=== PATIENT | female | born 1950 | race Hispanic/Latino ===

== ENCOUNTER 2020-10-27 05:00 | Inpatient (IN) | payer MEDICARE ==
[2020-10-27] MEDS ORDERED: traZODone 100 MG TAB PO SCH (22:00)
[2020-10-28] MEDS: PANTOPRAZOLE 40 MG TAB PO SCH (10:20)
--- NOTE | 2020-10-28 10:29 | History and Physical Report ---
GP History & Physical - History of Present Illness Date of admission: 10/27/20 Date of Examination: 10/28/20 Reason for Admission: Danger to self History of Present Illness: Per admission note: Pt ingest unknown amount of Ambien and klonopin in an attempt to kill herself Mary Jo Gonzalez is a 69y/o female patient who was admitted for suicidal attempt. During my assessment of the patient today she is lying down awake. She is a/o x 3. The patient is not forthcoming. She tells me she was depressed but has never tried to commit suicide. She says "I wouldn't do that to my dogs and my son." She denies ever having a suicide attempt in the past. The patient denies hallucinations of any kind. She does verbalize feeling "depressed and stressed." PAST PSYCHIATRIC HISTORY Diagnoses: denies Suicide attempts or Self-harm behavior: Denies Prior psychiatric hospitalizations: Denies Substance Abuse history: Denies Previous psychiatric medications tried: could not recall Outpatient treatment: yes PAST MEDICAL HISTORY: None reported Family Psychiatric History: None reported or documented SOCIAL HISTORY Marital Status: Living Arrangements: with son Employment Status: Retired Access to guns/weapons: denies Education:high school diploma History of Abuse: Denies Legal History: Denies REVIEW OF SYSTEMS Constitutional: Negative for weight loss ENT: Negative for stridor Respiratory: Negative for cough or hemoptysis All other systems reviewed and are negative MENTAL STATUS EXAMINATION General Appearance and Behavior: Age appropriate, good hygiene, not wearing appropriate clothes, good eye contact, cooperative polite with questioning. Cooperation: Participating/engaged Psychomotor Behavior: Psychomotor agitation Mood: depressed, stressed Affect and affective range: congruent with stated mood Thought Process: goal directed Thought Content: hopelessness Speech: normal tone and pace Intellectual Functioning: Average Suicidal Ideation: Denies SI Homicidal Ideation: Denies HI Impulse Control: Impaired Insight and Judgment: Limited insight and judgment Memory: Normal, Attention: Divided attention impaired Orientation: Alert, oriented, Assessment and Plan (1) Major Depressive Disorder Current Visit: Yes Status: Acute Treatment Plan Patient admitted for inpatient psychiatric evaluation, medication adjustment and close monitoring The patient's behavior, mood, sleep and appetite will be closely monitored. Patient enrolled in individual and group therapeutic sessions and encouraged to attend. Patient provided with a safe and structured environment. Patient's physical health needs will be addressed by the Hospitalist. Hospitalist Consulted Labs including CBC, CMP, Lipid profile and Hemoglobin A1C levels ordered for baseline reference Social Assessment will be completed and the Threader will work with patient and family to ensure a suitable and safe disposition Medication adjustment will be made as clinically indicated Continued home meds Usual Wellness Hindu/Preservation: - Start Trazodone 50 mg po QHS & 50 mg po QHS PRN between 10 PM & 2 AM for insomnia - Start Melatonin 5 mg po QHS to promote circadian rhythm - Start [place]-3 for brain health, reduce impulsivity, and as adjunctive treatment for mood disorder, continue upon discharge given overall benefits. - Start B1 prophylaxis with 200 mg po for 5 days The patient agreed on the treatment plan, understood the risk, benefit, alternative treatment, potential consequence of no treatment, and gave informed consent. Estimated days: 5 Post hospital care: primary care provider, psychiatric provider Legal Status: Voluntary Reaction to Hospitalization: Accepting Medications and Allergies Allergies Allergy/AdvReac Type Severity Reaction Status Date / Time Penicillins Allergy Rash Verified 10/27/20 17:08 Home Medications Medication Instructions Recorded Confirmed Last Taken Type Alendronate Sodium [Fosamax] 70 mg PO QWEEK 10/28/20 10/28/20 Unknown History Amlodipine Besylate [Norvasc] 2.5 mg PO DAILY 10/28/20 10/28/20 Unknown History Aspirin EC [Halfprin EC] 81 mg PO QDAY 10/28/20 10/28/20 Unknown History Bupropion HCl [Wellbutrin XL] 300 mg PO QAM 10/28/20 10/28/20 Unknown History Calcium Carbonate/Vitamin D3 1 each PO BID 10/28/20 10/28/20 Unknown History [Calcium 500-Vit D3 200 Tablet] Levothyroxine [Synthroid] 125 mcg PO QAM 10/28/20 10/28/20 Unknown History Metoprolol Xl [Metoprolol 25 mg PO DAILY 10/28/20 10/28/20 Unknown History SUCCINATE ER TAB] Pantoprazole [Protonix] 40 mg PO QDAY 10/28/20 10/28/20 Unknown History Simvastatin 20 mg PO HS 10/28/20 10/28/20 Unknown History Venlafaxine HCl [Venlafaxin ER] 75 mg PO QDAY 10/28/20 10/28/20 Unknown History hydroCHLOROthiazide 12.5 mg PO DAILY 10/28/20 10/28/20 Unknown History [Hydrochlorothiazide] lisinopriL [Lisinopril] 20 mg PO DAILY 10/28/20 10/28/20 Unknown History traZODone [Desyrel] 100 mg PO QHS 10/28/20 10/28/20 Unknown History Active Meds: Active Medications Trazodone HCl (Trazodone 100 Mg Tab) 100 mg PO QHS [facility] Last Admin: 10/27/20 21:35 Dose: 100 mg Documented by: Results - Results Labs/Vitals: Laboratory Last Values POC Glucose 148 mg/dL (70-105) H 10/27/20 17:41 Last Vital Signs Temp 98.3 F 10/27/20 19:23 Pulse 83 10/27/20 19:23 Resp 18 10/27/20 19:23 BP 142/91 10/27/20 19:23 Pulse Ox 97 10/27/20 19:23 Physical Examination - Constitutional Vitals: Vital Signs Temp Pulse Resp BP Pulse Ox 98.3 F 83 18 142/91 97 10/27/20 19:23 10/27/20 19:23 10/27/20 19:23 10/27/20 19:23 10/27/20 19:23 Temperature -Last 24 Hours Temperature 98.3 F Mental Status Exam - Vital signs Last Vital Signs Temp 98.3 F 10/27/20 19:23 Pulse 83 10/27/20 19:23 Resp 18 10/27/20 19:23 BP 142/91 10/27/20 19:23 Pulse Ox 97 10/27/20 19:23 Physician Certification - Certification Statement Physician Certification Statement: This is an acknowledgement statement that MARY JO GONZALEZ is a 69 year old F who requires inpatient psychiatric admission for treatment which could reasonably be expected to improve the patient's condition for Estimated period of time patient will need to remain in the hospital: [ ] Plan for post-hospital care: [ ]
[2020-10-28] MEDS ORDERED: NON-FORMULARY EACH (Amlodipine Besylate [Norvasc] 2.5 MG Tablet) PO SCH (10:45)
[2020-10-28] MEDS ORDERED: VENLAFAXINE HCL 75 MG PO SCH (10:45)
[2020-10-28] MEDS: amLODIPine 5 MG TAB PO SCH (11:18)
[2020-10-28] MEDS: ASPIRIN EC 81 MG TAB PO SCH (11:20)
[2020-10-28] MEDS ORDERED: LEVOTHYROXINE 125 MCG TAB PO ONE (12:00)
[2020-10-28] MEDS: VENLAFAXINE XR 75 MG CAP PO SCH (12:21)
[2020-10-28] MEDS: hydroCHLOROthiazide 12.5 MG CAP PO SCH (12:23)
[2020-10-28] MEDS: METOPROLOL SUCCINATE XL 25 MG TAB PO SCH (12:26)
[2020-10-28] MEDS: LISINOPRIL 20 MG TAB PO SCH (12:32)
[2020-10-28] MEDS: buPROPion XL 150 MG TAB PO SCH (12:33)
[2020-10-28] MEDS: traZODone 100 MG TAB PO SCH (21:01)
[2020-10-28] MEDS: PRAVASTATIN 40 MG TAB PO SCH (21:01)
[2020-10-28] MEDS: CALCIUM CARBONATE/VITAMIN D3 500 MG-200 UNIT TAB PO SCH (21:01)
[2020-10-28] MEDS ORDERED: NON-FORMULARY EACH (Simvastatin [Simvastatin] 20 MG Tablet) PO SCH (22:00)
[2020-10-29] MEDS ORDERED: LEVOTHYROXINE 125 MCG TAB PO ONE (06:00)
--- NOTE | 2020-10-29 07:35 | Consultation ---
History of Present Illness - Reason for Consult Consult date: 10/28/20 Medical management Requesting physician: CHALINO LEZAMA - History of Present Illness [id number]-year-old admitted for suicidal ideation/suicidal attempt. Patient denies suicidal attempt. No hallucinations. Feels depressed and stressed out. Hospitalist service being consulted for medical management. Patient has multiple medical problems including hypertension hyperlipidemia hypothyroidism osteop orosis and vitamin D deficiency. Past History Past Medical History: GERD, hypertension, hyperlipidemia, hypothyroidism, other (Osteoporosis, vitamin D deficiency, depression) Medications and Allergies Allergies Allergy/AdvReac Type Severity Reaction Status Date / Time Penicillins Allergy Rash Verified 10/27/20 17:08 Home Medications Medication Instructions Recorded Confirmed Last Taken Type Alendronate Sodium [Fosamax] 70 mg PO QWEEK 10/28/20 10/28/20 Unknown History Amlodipine Besylate [Norvasc] 2.5 mg PO DAILY 10/28/20 10/28/20 Unknown History Aspirin EC [Halfprin EC] 81 mg PO QDAY 10/28/20 10/28/20 Unknown History Bupropion HCl [Wellbutrin XL] 300 mg PO QAM 10/28/20 10/28/20 Unknown History Calcium Carbonate/Vitamin D3 1 each PO BID 10/28/20 10/28/20 Unknown History [Calcium 500-Vit D3 200 Tablet] Levothyroxine [Synthroid] 125 mcg PO QAM 10/28/20 10/28/20 Unknown History Metoprolol Xl [Metoprolol 25 mg PO DAILY 10/28/20 10/28/20 Unknown History SUCCINATE ER TAB] Pantoprazole [Protonix] 40 mg PO QDAY 10/28/20 10/28/20 Unknown History Simvastatin 20 mg PO HS 10/28/20 10/28/20 Unknown History Venlafaxine HCl [Venlafaxin ER] 75 mg PO QDAY 10/28/20 10/28/20 Unknown History hydroCHLOROthiazide 12.5 mg PO DAILY 10/28/20 10/28/20 Unknown History [Hydrochlorothiazide] lisinopriL [Lisinopril] 20 mg PO DAILY 10/28/20 10/28/20 Unknown History traZODone [Desyrel] 100 mg PO QHS 10/28/20 10/28/20 Unknown History Active Meds: Active Medications Amlodipine Besylate (Amlodipine 5 Mg Tab) 2.5 mg PO QDAY [facility] Last Admin: 10/28/20 11:18 Dose: 2.5 mg Documented by: Aspirin (Aspirin Ec 81 Mg Tab) 81 mg PO QDAY [facility] Last Admin: 10/28/20 11:20 Dose: 81 mg Documented by: Bupropion HCl (Bupropion Xl 150 Mg Tab) 300 mg PO QAM [facility] Last Admin: 10/28/20 12:33 Dose: 300 mg Documented by: Calcium/Vitamin D (Calcium Carbonate/Vitamin D3 500 Mg-200 Unit Tab) 1 each PO BID [facility] Last Admin: 10/28/20 21:01 Dose: 1 each Documented by: Hydrochlorothiazide (Hydrochlorothiazide 12.5 Mg Cap) 12.5 mg PO DAILY [facility] Last Admin: 10/28/20 12:23 Dose: 12.5 mg Documented by: Lisinopril (Lisinopril 20 Mg Tab) 20 mg PO DAILY [facility] Last Admin: 10/28/20 12:32 Dose: 20 mg Documented by: Metoprolol Succinate (Metoprolol Succinate Xl 25 Mg Tab) 25 mg PO DAILY [facility] Last Admin: 10/28/20 12:26 Dose: 25 mg Documented by: Pantoprazole Sodium (Pantoprazole 40 Mg Tab) 40 mg PO QDAY [facility] Last Admin: 10/28/20 10:20 Dose: 40 mg Documented by: Pravastatin Sodium (Pravastatin 40 Mg Tab) 40 mg PO QHS [facility] Last Admin: 10/28/20 21:01 Dose: 40 mg Documented by: Trazodone HCl (Trazodone 100 Mg Tab) 100 mg PO QHS [facility] Last Admin: 10/28/20 21:01 Dose: 100 mg Documented by: Venlafaxine HCl (Venlafaxine Xr 75 Mg Cap) 75 mg PO QDAY [facility] Last Admin: 10/28/20 12:21 Dose: 75 mg Documented by: Review of Systems All systems: negative Exam - Constitutional Vitals: Temp Pulse Resp BP Pulse Ox 97.9 F 55 L 18 124/56 97 10/28/20 19:20 10/28/20 19:20 10/28/20 19:20 10/28/20 19:20 10/28/20 19:20 General appearance: Present: no acute distress, well-nourished - EENT Eyes: Present: PERRL ENT: hearing intact, clear oral mucosa - Neck Neck: Present: supple, normal ROM - Respiratory Respiratory effort: normal Respiratory: bilateral: CTA - Cardiovascular Heart rate: 78 Rhythm: regular Heart Sounds: Present: S1 & S2. Absent: rub, click - Extremities Extremities: pulses symmetrical, No edema Peripheral Pulses: within normal limits - Abdominal General gastrointestinal: Present: soft, non-tender, non-distended, normal bowel sounds Female genitourinary: Present: normal - Integumentary Integumentary: Present: clear, warm, dry - Musculoskeletal Musculoskeletal: gait normal, strength equal bilaterally - Psychiatric Psychiatric: appropriate mood/affect, intact judgment & insight - Neurologic Neurologic: CNII-XII intact, moves all extremities Assessment and Plan - Patient Problems (1) Hypertension Current Visit: Yes Status: Chronic Qualifiers: Hypertension type: essential hypertension Qualified Code(s): I10 - Essential (primary) hypertension Plan to address problem: Continue antihypertensives (2) Vitamin D deficiency Current Visit: Yes Status: Chronic Plan to address problem: Continue vitamin D (3) GERD (gastroesophageal reflux disease) Current Visit: Yes Status: Chronic Qualifiers: Esophagitis presence: without esophagitis Qualified Code(s): K21.9 - Gastro-esophageal reflux disease without esophagitis Plan to address problem: Continue PPIs (4) Hyperlipidemia Current Visit: Yes Status: Chronic Qualifiers: Hyperlipidemia type: mixed hyperlipidemia Qualified Code(s): E78.2 - Mixed hyperlipidemia Plan to address problem: Continue statins (5) Hypothyroidism Current Visit: Yes Status: Chronic Qualifiers: Hypothyroidism type: acquired Qualified Code(s): E03.9 - Hypothyroidism, unspecified Plan to address problem: Continue levothyroxine Check TSH (6) Depression Current Visit: Yes Status: Chronic Plan to address problem: Referred to psych (7) DVT prophylaxis Current Visit: Yes Status: Acute
[2020-10-29 08:24] LABS: Basophils # (Auto) 0.1 K/mm3 (0.0-0.1); Basophils % (Auto) 1.5 % (0.0-1.8); Eosinophils # (Auto) 0.2 K/mm3 (0.0-0.4); Eosinophils % (Auto) 3.8 % (0.0-4.3); Hematocrit 34.5 % (30.3-42.9); Lymphocytes # (Auto) 1.3 K/mm3 (1.2-5.4); Lymphocytes % (Auto) 20.7 % (13.4-35.0); Mean Corpuscular HGB Conc 35 % (30-34); Mean Corpuscular Volume 78 fl (79-97); Monocytes # (Auto) 0.6 K/mm3 (0.0-0.8); Monocytes % (Auto) 9.6 % (0.0-7.3); Platelet Count 294 K/mm3 (140-440); Red Blood Count 4.41 M/mm3 (3.65-5.03); Red Cell Distribution Width 18.2 % (13.2-15.2)
[2020-10-29 08:43] LABS: BUN/Creatinine Ratio 8; Blood Urea Nitrogen 7 mg/dL (7-17); Calcium 8.3 mg/dL (8.4-10.2); Chol/HDL Ratio 3.13 %; HDL Cholesterol 45 mg/dL (40-59); Hemolysis Index 9; LDL Cholesterol,Direct 81 mg/dL (50-130)
[2020-10-29 08:45] LABS: Alanine Aminotransferase < 5 units/L (7-56)
[2020-10-29] MEDS: LISINOPRIL 20 MG TAB PO SCH (09:24)
[2020-10-29] MEDS: PANTOPRAZOLE 40 MG TAB PO SCH (09:24)
[2020-10-29] MEDS: VENLAFAXINE XR 75 MG CAP PO SCH (09:24)
[2020-10-29] MEDS: CALCIUM CARBONATE/VITAMIN D3 500 MG-200 UNIT TAB PO SCH ×2 (09:24→21:29)
[2020-10-29] MEDS: hydroCHLOROthiazide 12.5 MG CAP PO SCH (09:25)
[2020-10-29] MEDS: ASPIRIN EC 81 MG TAB PO SCH (09:25)
[2020-10-29] MEDS: buPROPion XL 150 MG TAB PO SCH (09:26)
[2020-10-29] MEDS: amLODIPine 5 MG TAB PO SCH (09:34)
[2020-10-29] MEDS: METOPROLOL SUCCINATE XL 25 MG TAB PO SCH (09:38)
[2020-10-29] MEDS ORDERED: NON-FORMULARY EACH (Bupropion Hcl [Wellbutrin Xl] 300 MG Tab.Er.24h) PO SCH (10:00)
--- NOTE | 2020-10-29 18:21 | Progress Note ---
Assessment and Plan Assessment and plan: -- Hypertension Current Visit: Yes Status: Chronic Continue antihypertensives Closely monitor blood pressures --Vitamin D deficiency Current Visit: Yes Status: Chronic Continue vitamin D --GERD (gastroesophageal reflux disease) Current Visit: Yes Status: Chronic Continue PPIs, changed to twice daily dose as requested by patient -- Hyperlipidemia Current Visit: Yes Status: Chronic Continue statins -- Hypothyroidism Current Visit: Yes Status: Chronic Continue levothyroxine. Check TSH --Moderate malnutrition/hypoalbuminemia Current Visit: Yes Status: Chronic nutrition supplements, supportive care --Depression Current Visit: Yes Status: Chronic Management per psych --Full code status --DVT prophylaxis Current Visit: Yes Status: Acute SCDs while resting We will closely monitor the patient as needed Continue current management Of care reviewed with the patient and her nurse Call us with questions History Interval history: I have seen and examined the patient in the [facility] psych unit. Patient is cheerful, joking with friends around the table in the activity room Patient planes of some heartburn, reports that she gets Protonix twice a day at home No nausea vomiting or abdominal pain Vital signs reviewed Hospitalist Physical - Constitutional Vitals: Temp Pulse Resp BP Pulse Ox 98.5 F 78 18 109/62 98 10/29/20 09:22 10/29/20 09:24 10/29/20 09:22 10/29/20 09:38 10/29/20 09:22 General appearance: Present: no acute distress, well-nourished - EENT Eyes: Present: PERRL, EOM intact - Neck Neck: Present: supple, normal ROM - Respiratory Respiratory effort: normal Respiratory: bilateral: diminished, negative: rales, rhonchi, wheezing - Cardiovascular Rhythm: regular Heart Sounds: Present: S1 & S2 - Extremities Extremities: no ischemia, No edema - Abdominal General gastrointestinal: soft, non-tender, non-distended, normal bowel sounds - Integumentary Integumentary: Present: clear, warm - Psychiatric Psychiatric: appropriate mood/affect, cooperative - Neurologic Neurologic: CNII-XII intact, moves all extremities Results - Labs CBC & Chem 7: 10/29/20 07:41 10/29/20 07:41 Labs: Laboratory Last Values WBC 6.2 K/mm3 (4.5-11.0) 10/29/20 07:41 RBC 4.41 M/mm3 (3.65-5.03) 10/29/20 07:41 Hgb 12.0 gm/dl (10.1-14.3) 10/29/20 07:41 Hct 34.5 % (30.3-42.9) 10/29/20 07:41 MCV 78 fl (79-97) L 10/29/20 07:41 MCH 27 pg (28-32) L 10/29/20 07:41 MCHC 35 % (30-34) H 10/29/20 07:41 RDW 18.2 % (13.2-15.2) H 10/29/20 07:41 Plt Count 294 K/mm3 (140-440) 10/29/20 07:41 Lymph % (Auto) 20.7 % (13.4-35.0) 10/29/20 07:41 [place] % (Auto) 9.6 % (0.0-7.3) H 10/29/20 07:41 Eos % (Auto) 3.8 % (0.0-4.3) 10/29/20 07:41 Baso % (Auto) 1.5 % (0.0-1.8) 10/29/20 07:41 Lymph # (Auto) 1.3 K/mm3 (1.2-5.4) 10/29/20 07:41 [place] # (Auto) 0.6 K/mm3 (0.0-0.8) 10/29/20 07:41 Eos # (Auto) 0.2 K/mm3 (0.0-0.4) 10/29/20 07:41 Baso # (Auto) 0.1 K/mm3 (0.0-0.1) 10/29/20 07:41 Seg Neutrophils % 64.4 % (40.0-70.0) 10/29/20 07:41 Seg Neutrophils # 4.0 K/mm3 (1.8-7.7) 10/29/20 07:41 Sodium 139 mmol/L (137-145) 10/29/20 07:41 Potassium 3.7 mmol/L (3.6-5.0) 10/29/20 07:41 Chloride 101.9 mmol/L (98-107) 10/29/20 07:41 Carbon Dioxide 28 mmol/L (22-30) 10/29/20 07:41 Anion Gap 13 mmol/L 10/29/20 07:41 BUN 7 mg/dL (7-17) 10/29/20 07:41 Creatinine 0.9 mg/dL (0.6-1.2) 10/29/20 07:41 Estimated GFR > 60 ml/min 10/29/20 07:41 BUN/Creatinine Ratio 8 % 10/29/20 07:41 Glucose 81 mg/dL (65-100) 10/29/20 07:41 POC Glucose 148 mg/dL (70-105) H 10/27/20 17:41 Hemoglobin A1c 4.5 % (4-6) 10/29/20 07:41 Calcium 8.3 mg/dL (8.4-10.2) L 10/29/20 07:41 Total Bilirubin 0.20 mg/dL (0.1-1.2) 10/29/20 07:41 AST 9 units/L (5-40) 10/29/20 07:41 ALT < 5 units/L (7-56) L 10/29/20 07:41 Alkaline Phosphatase 62 units/L (35-129) 10/29/20 07:41 Total Protein 5.7 g/dL (6.3-8.2) L 10/29/20 07:41 Albumin 3.0 g/dL (3.9-5) L 10/29/20 07:41 Albumin/Globulin Ratio 1.1 % 10/29/20 07:41 Triglycerides 128 mg/dL (2-149) 10/29/20 07:41 Cholesterol 141 mg/dL (50-199) 10/29/20 07:41 LDL Cholesterol Direct 81 mg/dL (50-130) 10/29/20 07:41 HDL Cholesterol 45 mg/dL (40-59) 10/29/20 07:41 Cholesterol/HDL Ratio 3.13 % 10/29/20 07:41 TSH 5.150 mlU/mL (0.270-4.200) H 10/29/20 07:41 [place]/IV: Voiding Method Toilet Active Medications - Current Medications Current Medications: Generic Name Dose Route Start Last Admin Trade Name Freq PRN Reason Stop Dose Admin Amlodipine Besylate 2.5 mg 10/28/20 11:00 10/29/20 09:34 Amlodipine 5 Mg Tab PO Not Given QDAY JESSICA Aspirin 81 mg 10/28/20 11:00 10/29/20 09:25 Aspirin Ec 81 Mg Tab PO 81 mg QDAY JESSICA Administration Bupropion HCl 300 mg 10/28/20 11:00 10/29/20 09:26 Bupropion Xl 150 Mg Tab PO 300 mg QAM JESSICA Administration Calcium/Vitamin D 1 each 10/28/20 22:00 10/29/20 09:24 Calcium Carbonate/Vitamin D3 500 Mg-200 Unit Tab PO 1 each BID JESSICA Administration Hydrochlorothiazide 12.5 mg 10/28/20 12:00 10/29/20 09:25 Hydrochlorothiazide 12.5 Mg Cap PO 12.5 mg DAILY JESSICA Administration Lisinopril 20 mg 10/28/20 11:00 10/29/20 09:24 Lisinopril 20 Mg Tab PO 20 mg DAILY JESSICA Administration Metoprolol Succinate 25 mg 10/28/20 12:00 10/29/20 09:38 Metoprolol Succinate Xl 25 Mg Tab PO Not Given DAILY JESSICA Pantoprazole Sodium 40 mg 10/28/20 11:00 10/29/20 09:24 Pantoprazole 40 Mg Tab PO 40 mg QDAY JESSICA Administration Pravastatin Sodium 40 mg 10/28/20 22:00 10/28/20 21:01 Pravastatin 40 Mg Tab PO 40 mg QHS JESSICA Administration Trazodone HCl 100 mg 10/28/20 22:00 10/28/20 21:01 Trazodone 100 Mg Tab PO 100 mg QHS JESSICA Administration Venlafaxine HCl 75 mg 10/28/20 12:00 10/29/20 09:24 Venlafaxine Xr 75 Mg Cap PO 75 mg QDAY JESSICA Administration
[2020-10-29] MEDS: PRAVASTATIN 40 MG TAB PO SCH (21:29)
[2020-10-29] MEDS: traZODone 100 MG TAB PO SCH (21:29)
[2020-10-30] MEDS: buPROPion XL 150 MG TAB PO SCH (09:10)
[2020-10-30] MEDS: PANTOPRAZOLE 40 MG TAB PO SCH (09:10)
[2020-10-30] MEDS: hydroCHLOROthiazide 12.5 MG CAP PO SCH (09:10)
[2020-10-30] MEDS: LISINOPRIL 20 MG TAB PO SCH (09:10)
[2020-10-30] MEDS: VENLAFAXINE XR 75 MG CAP PO SCH (09:10)
[2020-10-30] MEDS: CALCIUM CARBONATE/VITAMIN D3 500 MG-200 UNIT TAB PO SCH ×2 (09:10→21:54)
[2020-10-30] MEDS: METOPROLOL SUCCINATE XL 25 MG TAB PO SCH (09:11)
[2020-10-30] MEDS: amLODIPine 5 MG TAB PO SCH (09:11)
[2020-10-30] MEDS: ASPIRIN EC 81 MG TAB PO SCH (09:12)
--- NOTE | 2020-10-30 09:34 | Progress Note ---
Subjective Date of service: 10/30/20 Principal diagnosis: MDD Subjective Comment: Per Nurse Note: Last evening the patient spent with peers in the activity room. She had appropriate interactions. She smiles at times. She denies si/hi/ah/vh. She moves about in a wheelchair due to ankle fx. She denied pain. Her appetite is good. She was medication compliant. She stated she normally takes 3 trazodone at bedtime and stated she did not sleep "at all" last night. The patient was seen today, she verbalizes feeling better, and states that her son go into rehab, which the patient states this was a big cause of stress. She still verbalizes depression over her situation, but states "It's getting b won." She denies hallucinations or suicidal thoughts. Reason for continued inpatient treatment: The patient had a suicide attempt and initially was not upfront about it. Will continue to monitor and treat to ensue she discharges safely. REVIEW OF SYSTEMS Constitutional: Negative for weight loss ENT: Negative for stridor Respiratory: Negative for cough or hemoptysis All other systems reviewed and are negative MENTAL STATUS EXAMINATION General Appearance and Behavior: Age appropriate, good hygiene, not wearing appropriate clothes, good eye contact, cooperative polite with questioning. Cooperation: Participating/engaged Psychomotor Behavior: Psychomotor agitation Mood: depressed, stressed Affect and affective range: congruent with stated mood Thought Process: goal directed Thought Content: hopelessness Speech: normal tone and pace Intellectual Functioning: Average Suicidal Ideation: Denies SI Homicidal Ideation: Denies HI Impulse Control: Impaired Insight and Judgment: Limited insight and judgment Memory: Normal, Attention: Divided attention impaired Orientation: Alert, oriented, Assessment and Plan (1) Major Depressive Disorder Current Visit: Yes Status: Acute Treatment Plan Patient admitted for inpatient psychiatric evaluation, medication adjustment and close monitoring The patient's behavior, mood, sleep and appetite will be closely monitored. Patient enrolled in individual and group therapeutic sessions and encouraged to attend. Patient provided with a safe and structured environment. Patient's physical health needs will be addressed by the Hospitalist. Hospitalist Consulted Labs including CBC, CMP, Lipid profile and Hemoglobin A1C levels ordered for baseline reference Social Assessment will be completed and the Front Desk Team Member will work with patient and family to ensure a suitable and safe disposition Medication adjustment will be made as clinically indicated Start Abilify 5mg po daily for resistant depression Usual Wellness Religion/Preservation: - Start Trazodone 50 mg po QHS & 50 mg po QHS PRN between 10 PM & 2 AM for insomnia - Start Melatonin 5 mg po QHS to promote circadian rhythm - Start [place]-3 for brain health, reduce impulsivity, and as adjunctive treatment for mood disorder, continue upon discharge given overall benefits. - Start B1 prophylaxis with 200 mg po for 5 days The patient agreed on the treatment plan, understood the risk, benefit, alternative treatment, potential consequence of no treatment, and gave informed consent. Estimated days: 5 Post hospital care: primary care provider, psychiatric provider Medications and Allergies Allergies Allergy/AdvReac Type Severity Reaction Status Date / Time Penicillins Allergy Rash Verified 10/27/20 17:08 Home Medications Medication Instructions Recorded Confirmed Last Taken Type Alendronate Sodium [Fosamax] 70 mg PO QWEEK 10/28/20 10/28/20 Unknown History Amlodipine Besylate [Norvasc] 2.5 mg PO DAILY 10/28/20 10/28/20 Unknown History Aspirin EC [Halfprin EC] 81 mg PO QDAY 10/28/20 10/28/20 Unknown History Bupropion HCl [Wellbutrin XL] 300 mg PO QAM 10/28/20 10/28/20 Unknown History Calcium Carbonate/Vitamin D3 1 each PO BID 10/28/20 10/28/20 Unknown History [Calcium 500-Vit D3 200 Tablet] Levothyroxine [Synthroid] 125 mcg PO QAM 10/28/20 10/28/20 Unknown History Metoprolol Xl [Metoprolol 25 mg PO DAILY 10/28/20 10/28/20 Unknown History SUCCINATE ER TAB] Pantoprazole [Protonix] 40 mg PO QDAY 10/28/20 10/28/20 Unknown History Simvastatin 20 mg PO HS 10/28/20 10/28/20 Unknown History Venlafaxine HCl [Venlafaxin ER] 75 mg PO QDAY 10/28/20 10/28/20 Unknown History hydroCHLOROthiazide 12.5 mg PO DAILY 10/28/20 10/28/20 Unknown History [Hydrochlorothiazide] lisinopriL [Lisinopril] 20 mg PO DAILY 10/28/20 10/28/20 Unknown History traZODone [Desyrel] 100 mg PO QHS 10/28/20 10/28/20 Unknown History Active Meds: Active Medications Amlodipine Besylate (Amlodipine 5 Mg Tab) 2.5 mg PO QDAY [facility] Last Admin: 10/30/20 09:11 Dose: 2.5 mg Documented by: Aspirin (Aspirin Ec 81 Mg Tab) 81 mg PO QDAY [facility] Last Admin: 10/30/20 09:12 Dose: 81 mg Documented by: Bupropion HCl (Bupropion Xl 150 Mg Tab) 300 mg PO QAM [facility] Last Admin: 10/30/20 09:10 Dose: 300 mg Documented by: Calcium/Vitamin D (Calcium Carbonate/Vitamin D3 500 Mg-200 Unit Tab) 1 each PO BID [facility] Last Admin: 10/30/20 09:10 Dose: 1 each Documented by: Hydrochlorothiazide (Hydrochlorothiazide 12.5 Mg Cap) 12.5 mg PO DAILY [facility] Last Admin: 10/30/20 09:10 Dose: 12.5 mg Documented by: Lisinopril (Lisinopril 20 Mg Tab) 20 mg PO DAILY [facility] Last Admin: 10/30/20 09:10 Dose: 20 mg Documented by: Metoprolol Succinate (Metoprolol Succinate Xl 25 Mg Tab) 25 mg PO DAILY [facility] Last Admin: 10/30/20 09:11 Dose: 25 mg Documented by: Pantoprazole Sodium (Pantoprazole 40 Mg Tab) 40 mg PO QDAY [facility] Last Admin: 10/30/20 09:10 Dose: 40 mg Documented by: Pravastatin Sodium (Pravastatin 40 Mg Tab) 40 mg PO QHS [facility] Last Admin: 10/29/20 21:29 Dose: 40 mg Documented by: Trazodone HCl (Trazodone 100 Mg Tab) 100 mg PO QHS [facility] Last Admin: 10/29/20 21:29 Dose: 100 mg Documented by: Venlafaxine HCl (Venlafaxine Xr 75 Mg Cap) 75 mg PO QDAY [facility] Last Admin: 10/30/20 09:10 Dose: 75 mg Documented by: Results - Results Labs/Vitals: Laboratory Last Values WBC 6.2 K/mm3 (4.5-11.0) 10/29/20 07:41 RBC 4.41 M/mm3 (3.65-5.03) 10/29/20 07:41 Hgb 12.0 gm/dl (10.1-14.3) 10/29/20 07:41 Hct 34.5 % (30.3-42.9) 10/29/20 07:41 MCV 78 fl (79-97) L 10/29/20 07:41 MCH 27 pg (28-32) L 10/29/20 07:41 MCHC 35 % (30-34) H 10/29/20 07:41 RDW 18.2 % (13.2-15.2) H 10/29/20 07:41 Plt Count 294 K/mm3 (140-440) 10/29/20 07:41 Lymph % (Auto) 20.7 % (13.4-35.0) 10/29/20 07:41 [place] % (Auto) 9.6 % (0.0-7.3) H 10/29/20 07:41 Eos % (Auto) 3.8 % (0.0-4.3) 10/29/20 07:41 Baso % (Auto) 1.5 % (0.0-1.8) 10/29/20 07:41 Lymph # (Auto) 1.3 K/mm3 (1.2-5.4) 10/29/20 07:41 [place] # (Auto) 0.6 K/mm3 (0.0-0.8) 10/29/20 07:41 Eos # (Auto) 0.2 K/mm3 (0.0-0.4) 10/29/20 07:41 Baso # (Auto) 0.1 K/mm3 (0.0-0.1) 10/29/20 07:41 Seg Neutrophils % 64.4 % (40.0-70.0) 10/29/20 07:41 Seg Neutrophils # 4.0 K/mm3 (1.8-7.7) 10/29/20 07:41 Sodium 139 mmol/L (137-145) 10/29/20 07:41 Potassium 3.7 mmol/L (3.6-5.0) 10/29/20 07:41 Chloride 101.9 mmol/L (98-107) 10/29/20 07:41 Carbon Dioxide 28 mmol/L (22-30) 10/29/20 07:41 Anion Gap 13 mmol/L 10/29/20 07:41 BUN 7 mg/dL (7-17) 10/29/20 07:41 Creatinine 0.9 mg/dL (0.6-1.2) 10/29/20 07:41 Estimated GFR > 60 ml/min 10/29/20 07:41 BUN/Creatinine Ratio 8 % 10/29/20 07:41 Glucose 81 mg/dL (65-100) 10/29/20 07:41 POC Glucose 148 mg/dL (70-105) H 10/27/20 17:41 Hemoglobin A1c 4.5 % (4-6) 10/29/20 07:41 Calcium 8.3 mg/dL (8.4-10.2) L 10/29/20 07:41 Total Bilirubin 0.20 mg/dL (0.1-1.2) 10/29/20 07:41 AST 9 units/L (5-40) 10/29/20 07:41 ALT < 5 units/L (7-56) L 10/29/20 07:41 Alkaline Phosphatase 62 units/L (35-129) 10/29/20 07:41 Total Protein 5.7 g/dL (6.3-8.2) L 10/29/20 07:41 Albumin 3.0 g/dL (3.9-5) L 10/29/20 07:41 Albumin/Globulin Ratio 1.1 % 10/29/20 07:41 Triglycerides 128 mg/dL (2-149) 10/29/20 07:41 Cholesterol 141 mg/dL (50-199) 10/29/20 07:41 LDL Cholesterol Direct 81 mg/dL (50-130) 10/29/20 07:41 HDL Cholesterol 45 mg/dL (40-59) 10/29/20 07:41 Cholesterol/HDL Ratio 3.13 % 10/29/20 07:41 TSH 5.150 mlU/mL (0.270-4.200) H 10/29/20 07:41 Last Vital Signs Temp 98.3 F 10/30/20 07:43 Pulse 92 H 10/30/20 09:11 Resp 18 10/30/20 07:43 BP 142/83 10/30/20 09:11 Pulse Ox 94 10/30/20 07:43
[2020-10-30] MEDS: ARIPiprazole 5 MG TAB PO SCH (10:49)
[2020-10-30] MEDS: PRAVASTATIN 40 MG TAB PO SCH (21:54)
[2020-10-30] MEDS: traZODone 100 MG TAB PO SCH (21:54)
--- NOTE | 2020-10-31 10:16 | Progress Note ---
Subjective Date of service: 10/31/20 Principal diagnosis: MDD Subjective Comment: Per Nurse Note: Pt received in bed A&Ox4. Pt denies SI/HI and AVH. Pt states she is happy because her son in now in rehab. Pt also stated "I was never suicidal, I just wanted to forget everything and go to sleep". Close monitoring continues. The patient was seen today, she verbalizes wanting to go home. Advised the patient that since she had a suicide attempt she would need to be monitored for her safety. The patient denies trying to commit suicide. She states "I wasn't trying to hurt myself. I was just tired and wanted everything to end." Explained to her that these thoughts, with the action of taking pills to "end everything" was a suicidal attempt. She says she feels much better that her son is in rehab and states he was her biggest stressor. Reason for continued inpatient treatment: The patient had a suicide attempt and initially was not upfront about it. Will continue to monitor and treat to ensue she discharges safely. REVIEW OF SYSTEMS Constitutional: Negative for weight loss ENT: Negative for stridor Respiratory: Negative for cough or hemoptysis All other systems reviewed and are negative MENTAL STATUS EXAMINATION General Appearance and Behavior: Age appropriate, good hygiene, not wearing appropriate clothes, good eye contact, cooperative polite with questioning. Cooperation: Participating/engaged Psychomotor Behavior: Psychomotor normal Mood: depressed, stressed Affect and affective range: congruent with stated mood Thought Process: goal directed Thought Content: hopelessness Speech: normal tone and pace Intellectual Functioning: Average Suicidal Ideation: Denies SI Homicidal Ideation: Denies HI Impulse Control: Impaired Insight and Judgment: Limited insight and judgment Memory: Normal, Attention: Divided attention impaired Orientation: Alert, oriented, Assessment and Plan (1) Major Depressive Disorder Current Visit: Yes Status: Acute Treatment Plan Patient admitted for inpatient psychiatric evaluation, medication adjustment and close monitoring The patient's behavior, mood, sleep and appetite will be closely monitored. Patient enrolled in individual and group therapeutic sessions and encouraged to attend. Patient provided with a safe and structured environment. Patient's physical health needs will be addressed by the Hospitalist. Hospitalist Consulted Labs including CBC, CMP, Lipid profile and Hemoglobin A1C levels ordered for baseline reference Social Assessment will be completed and the Weld Technician will work with patient and family to ensure a suitable and safe disposition Medication adjustment will be made as clinically indicated Start Abilify 5mg po daily for resistant depression yesterday No changes today Usual Wellness Gnosticist/Preservation: - Start Trazodone 50 mg po QHS & 50 mg po QHS PRN between 10 PM & 2 AM for insomnia - Start Melatonin 5 mg po QHS to promote circadian rhythm - Start [place]-3 for brain health, reduce impulsivity, and as adjunctive treatment for mood disorder, continue upon discharge given overall benefits. - Start B1 prophylaxis with 200 mg po for 5 days The patient agreed on the treatment plan, understood the risk, benefit, alternative treatment, potential consequence of no treatment, and gave informed consent. Estimated days: 5 Post hospital care: primary care provider, psychiatric provider Medications and Allergies Allergies Allergy/AdvReac Type Severity Reaction Status Date / Time Penicillins Allergy Rash Verified 10/27/20 17:08 Home Medications Medication Instructions Recorded Confirmed Last Taken Type Alendronate Sodium [Fosamax] 70 mg PO QWEEK 10/28/20 10/28/20 Unknown History Amlodipine Besylate [Norvasc] 2.5 mg PO DAILY 10/28/20 10/28/20 Unknown History Aspirin EC [Halfprin EC] 81 mg PO QDAY 10/28/20 10/28/20 Unknown History Bupropion HCl [Wellbutrin XL] 300 mg PO QAM 10/28/20 10/28/20 Unknown History Calcium Carbonate/Vitamin D3 1 each PO BID 10/28/20 10/28/20 Unknown History [Calcium 500-Vit D3 200 Tablet] Levothyroxine [Synthroid] 125 mcg PO QAM 10/28/20 10/28/20 Unknown History Metoprolol Xl [Metoprolol 25 mg PO DAILY 10/28/20 10/28/20 Unknown History SUCCINATE ER TAB] Pantoprazole [Protonix] 40 mg PO QDAY 10/28/20 10/28/20 Unknown History Simvastatin 20 mg PO HS 10/28/20 10/28/20 Unknown History Venlafaxine HCl [Venlafaxin ER] 75 mg PO QDAY 10/28/20 10/28/20 Unknown History hydroCHLOROthiazide 12.5 mg PO DAILY 10/28/20 10/28/20 Unknown History [Hydrochlorothiazide] lisinopriL [Lisinopril] 20 mg PO DAILY 10/28/20 10/28/20 Unknown History traZODone [Desyrel] 100 mg PO QHS 10/28/20 10/28/20 Unknown History Active Meds: Active Medications Amlodipine Besylate (Amlodipine 5 Mg Tab) 2.5 mg PO QDAY [facility] Last Admin: 10/30/20 09:11 Dose: 2.5 mg Documented by: Aripiprazole (Aripiprazole 5 Mg Tab) 5 mg PO QDAY [facility] Last Admin: 10/30/20 10:49 Dose: 5 mg Documented by: Aspirin (Aspirin Ec 81 Mg Tab) 81 mg PO QDAY [facility] Last Admin: 10/30/20 09:12 Dose: 81 mg Documented by: Bupropion HCl (Bupropion Xl 150 Mg Tab) 300 mg PO QAM [facility] Last Admin: 10/30/20 09:10 Dose: 300 mg Documented by: Calcium/Vitamin D (Calcium Carbonate/Vitamin D3 500 Mg-200 Unit Tab) 1 each PO BID [facility] Last Admin: 10/30/20 21:54 Dose: 1 each Documented by: Hydrochlorothiazide (Hydrochlorothiazide 12.5 Mg Cap) 12.5 mg PO DAILY [facility] Last Admin: 10/30/20 09:10 Dose: 12.5 mg Documented by: Lisinopril (Lisinopril 20 Mg Tab) 20 mg PO DAILY [facility] Last Admin: 10/30/20 09:10 Dose: 20 mg Documented by: Metoprolol Succinate (Metoprolol Succinate Xl 25 Mg Tab) 25 mg PO DAILY [facility] Last Admin: 10/30/20 09:11 Dose: 25 mg Documented by: Pantoprazole Sodium (Pantoprazole 40 Mg Tab) 40 mg PO QDAY [facility] Last Admin: 10/30/20 09:10 Dose: 40 mg Documented by: Pravastatin Sodium (Pravastatin 40 Mg Tab) 40 mg PO QHS [facility] Last Admin: 10/30/20 21:54 Dose: 40 mg Documented by: Trazodone HCl (Trazodone 100 Mg Tab) 100 mg PO QHS [facility] Last Admin: 10/30/20 21:54 Dose: 100 mg Documented by: Venlafaxine HCl (Venlafaxine Xr 75 Mg Cap) 75 mg PO QDAY [facility] Last Admin: 10/30/20 09:10 Dose: 75 mg Documented by: Results - Results Labs/Vitals: Laboratory Last Values WBC 6.2 K/mm3 (4.5-11.0) 10/29/20 07:41 RBC 4.41 M/mm3 (3.65-5.03) 10/29/20 07:41 Hgb 12.0 gm/dl (10.1-14.3) 10/29/20 07:41 Hct 34.5 % (30.3-42.9) 10/29/20 07:41 MCV 78 fl (79-97) L 10/29/20 07:41 MCH 27 pg (28-32) L 10/29/20 07:41 MCHC 35 % (30-34) H 10/29/20 07:41 RDW 18.2 % (13.2-15.2) H 10/29/20 07:41 Plt Count 294 K/mm3 (140-440) 10/29/20 07:41 Lymph % (Auto) 20.7 % (13.4-35.0) 10/29/20 07:41 [place] % (Auto) 9.6 % (0.0-7.3) H 10/29/20 07:41 Eos % (Auto) 3.8 % (0.0-4.3) 10/29/20 07:41 Baso % (Auto) 1.5 % (0.0-1.8) 10/29/20 07:41 Lymph # (Auto) 1.3 K/mm3 (1.2-5.4) 10/29/20 07:41 [place] # (Auto) 0.6 K/mm3 (0.0-0.8) 10/29/20 07:41 Eos # (Auto) 0.2 K/mm3 (0.0-0.4) 10/29/20 07:41 Baso # (Auto) 0.1 K/mm3 (0.0-0.1) 10/29/20 07:41 Seg Neutrophils % 64.4 % (40.0-70.0) 10/29/20 07:41 Seg Neutrophils # 4.0 K/mm3 (1.8-7.7) 10/29/20 07:41 Sodium 139 mmol/L (137-145) 10/29/20 07:41 Potassium 3.7 mmol/L (3.6-5.0) 10/29/20 07:41 Chloride 101.9 mmol/L (98-107) 10/29/20 07:41 Carbon Dioxide 28 mmol/L (22-30) 10/29/20 07:41 Anion Gap 13 mmol/L 10/29/20 07:41 BUN 7 mg/dL (7-17) 10/29/20 07:41 Creatinine 0.9 mg/dL (0.6-1.2) 10/29/20 07:41 Estimated GFR > 60 ml/min 10/29/20 07:41 BUN/Creatinine Ratio 8 % 10/29/20 07:41 Glucose 81 mg/dL (65-100) 10/29/20 07:41 POC Glucose 148 mg/dL (70-105) H 10/27/20 17:41 Hemoglobin A1c 4.5 % (4-6) 10/29/20 07:41 Calcium 8.3 mg/dL (8.4-10.2) L 10/29/20 07:41 Total Bilirubin 0.20 mg/dL (0.1-1.2) 10/29/20 07:41 AST 9 units/L (5-40) 10/29/20 07:41 ALT < 5 units/L (7-56) L 10/29/20 07:41 Alkaline Phosphatase 62 units/L (35-129) 10/29/20 07:41 Total Protein 5.7 g/dL (6.3-8.2) L 10/29/20 07:41 Albumin 3.0 g/dL (3.9-5) L 10/29/20 07:41 Albumin/Globulin Ratio 1.1 % 10/29/20 07:41 Triglycerides 128 mg/dL (2-149) 10/29/20 07:41 Cholesterol 141 mg/dL (50-199) 10/29/20 07:41 LDL Cholesterol Direct 81 mg/dL (50-130) 10/29/20 07:41 HDL Cholesterol 45 mg/dL (40-59) 10/29/20 07:41 Cholesterol/HDL Ratio 3.13 % 10/29/20 07:41 TSH 5.150 mlU/mL (0.270-4.200) H 10/29/20 07:41 Last Vital Signs Temp 98.0 F 10/31/20 09:12 Pulse 81 10/31/20 09:12 Resp 16 10/31/20 09:12 BP 91/63 10/31/20 09:12 Pulse Ox 95 05/26/21 09:12
[2020-10-31] MEDS: ASPIRIN EC 81 MG TAB PO SCH (10:45)
[2020-10-31] MEDS: ARIPiprazole 5 MG TAB PO SCH (10:46)
[2020-10-31] MEDS: VENLAFAXINE XR 75 MG CAP PO SCH (10:46)
[2020-10-31] MEDS: amLODIPine 5 MG TAB PO SCH (10:46)
[2020-10-31] MEDS: buPROPion XL 150 MG TAB PO SCH (10:46)
[2020-10-31] MEDS: LISINOPRIL 20 MG TAB PO SCH (10:47)
[2020-10-31] MEDS: hydroCHLOROthiazide 12.5 MG CAP PO SCH (10:48)
[2020-10-31] MEDS: PANTOPRAZOLE 40 MG TAB PO SCH (10:49)
[2020-10-31] MEDS: METOPROLOL SUCCINATE XL 25 MG TAB PO SCH (10:49)
[2020-10-31] MEDS: CALCIUM CARBONATE/VITAMIN D3 500 MG-200 UNIT TAB PO SCH ×2 (10:49→21:09)
[2020-10-31] MEDS: traZODone 100 MG TAB PO SCH (21:09)
[2020-10-31] MEDS: PRAVASTATIN 40 MG TAB PO SCH (21:09)
[2020-11-01] MEDS: hydroCHLOROthiazide 12.5 MG CAP PO SCH (09:24)
[2020-11-01] MEDS: ASPIRIN EC 81 MG TAB PO SCH (09:24)
[2020-11-01] MEDS: METOPROLOL SUCCINATE XL 25 MG TAB PO SCH (09:24)
[2020-11-01] MEDS: VENLAFAXINE XR 75 MG CAP PO SCH (09:24)
[2020-11-01] MEDS: CALCIUM CARBONATE/VITAMIN D3 500 MG-200 UNIT TAB PO SCH ×2 (09:25→21:13)
[2020-11-01] MEDS: ARIPiprazole 5 MG TAB PO SCH (09:25)
[2020-11-01] MEDS: amLODIPine 5 MG TAB PO SCH (09:26)
[2020-11-01] MEDS: PANTOPRAZOLE 40 MG TAB PO SCH ×2 (09:26→21:13)
[2020-11-01] MEDS: LISINOPRIL 20 MG TAB PO SCH (09:26)
[2020-11-01] MEDS: buPROPion XL 150 MG TAB PO SCH (09:27)
--- NOTE | 2020-11-01 10:26 | Progress Note ---
Subjective Date of service: 11/01/20 Principal diagnosis: MDD Subjective Comment: The patient was seen today, she looks a little irritable. She says "I'm just ready to go home and see my dogs." The patient says "I promise I want do that again. My wants me home too." She denies SI/HI or hallucinations of any kind. Reason for continued inpatient treatment: The patient has consistently denied suicidal thoughts, but she had a suicide attempt and initially was not upfront about it. Will continue to monitor and treat to ensue she discharges safely. REVIEW OF SYSTEMS Constitutional: Negative for weight loss ENT: Negative for stridor Respiratory: Negative for cough or hemoptysis All other systems reviewed and are negative MENTAL STATUS EXAMINATION General Appearance and Behavior: Age appropriate, good hygiene, not wearing appropriate clothes, good eye contact, cooperative polite with questioning. Cooperation: Participating/engaged Psychomotor Behavior: Psychomotor normal Mood: depressed, stressed Affect and affective range: congruent with stated mood Thought Process: goal directed Thought Content: hopelessness Speech: normal tone and pace Intellectual Functioning: Average Suicidal Ideation: Denies SI Homicidal Ideation: Denies HI Impulse Control: Impaired Insight and Judgment: Limited insight and judgment Memory: Normal, Attention: Divided attention impaired Orientation: Alert, oriented, Assessment and Plan (1) Major Depressive Disorder Current Visit: Yes Status: Acute Treatment Plan Patient admitted for inpatient psychiatric evaluation, medication adjustment and close monitoring The patient's behavior, mood, sleep and appetite will be closely monitored. Patient enrolled in individual and group therapeutic sessions and encouraged to attend. Patient provided with a safe and structured environment. Patient's physical health needs will be addressed by the Hospitalist. Hospitalist Consulted Labs including CBC, CMP, Lipid profile and Hemoglobin A1C levels ordered for baseline reference Social Assessment will be completed and the Spinner Fixer will work with patient and family to ensure a suitable and safe disposition Medication adjustment will be made as clinically indicated No changes today Usual Wellness Jainism/Preservation: - Start Trazodone 50 mg po QHS & 50 mg po QHS PRN between 10 PM & 2 AM for insomnia - Start Melatonin 5 mg po QHS to promote circadian rhythm - Start [place]-3 for brain health, reduce impulsivity, and as adjunctive treatment for mood disorder, continue upon discharge given overall benefits. - Start B1 prophylaxis with 200 mg po for 5 days The patient agreed on the treatment plan, understood the risk, benefit, alternative treatment, potential consequence of no treatment, and gave informed consent. Estimated days: 5 Post hospital care: primary care provider, psychiatric provider Medications and Allergies Allergies Allergy/AdvReac Type Severity Reaction Status Date / Time Penicillins Allergy Rash Verified 10/27/20 17:08 Home Medications Medication Instructions Recorded Confirmed Last Taken Type Alendronate Sodium [Fosamax] 70 mg PO QWEEK 10/28/20 10/28/20 Unknown History Amlodipine Besylate [Norvasc] 2.5 mg PO DAILY 10/28/20 10/28/20 Unknown History Aspirin EC [Halfprin EC] 81 mg PO QDAY 10/28/20 10/28/20 Unknown History Bupropion HCl [Wellbutrin XL] 300 mg PO QAM 10/28/20 10/28/20 Unknown History Calcium Carbonate/Vitamin D3 1 each PO BID 10/28/20 10/28/20 Unknown History [Calcium 500-Vit D3 200 Tablet] Levothyroxine [Synthroid] 125 mcg PO QAM 10/28/20 10/28/20 Unknown History Metoprolol Xl [Metoprolol 25 mg PO DAILY 10/28/20 10/28/20 Unknown History SUCCINATE ER TAB] Pantoprazole [Protonix] 40 mg PO QDAY 10/28/20 10/28/20 Unknown History Simvastatin 20 mg PO HS 10/28/20 10/28/20 Unknown History Venlafaxine HCl [Venlafaxin ER] 75 mg PO QDAY 10/28/20 10/28/20 Unknown History hydroCHLOROthiazide 12.5 mg PO DAILY 10/28/20 10/28/20 Unknown History [Hydrochlorothiazide] lisinopriL [Lisinopril] 20 mg PO DAILY 10/28/20 10/28/20 Unknown History traZODone [Desyrel] 100 mg PO QHS 10/28/20 10/28/20 Unknown History Active Meds: Active Medications Amlodipine Besylate (Amlodipine 5 Mg Tab) 2.5 mg PO QDAY [facility] Last Admin: 11/01/20 09:26 Dose: 2.5 mg Documented by: Aripiprazole (Aripiprazole 5 Mg Tab) 5 mg PO QDAY [facility] Last Admin: 11/01/20 09:25 Dose: 5 mg Documented by: Aspirin (Aspirin Ec 81 Mg Tab) 81 mg PO QDAY [facility] Last Admin: 11/01/20 09:24 Dose: 81 mg Documented by: Bupropion HCl (Bupropion Xl 150 Mg Tab) 300 mg PO QAM [facility] Last Admin: 11/01/20 09:27 Dose: 300 mg Documented by: Calcium/Vitamin D (Calcium Carbonate/Vitamin D3 500 Mg-200 Unit Tab) 1 each PO BID [facility] Last Admin: 11/01/20 09:25 Dose: 1 each Documented by: Hydrochlorothiazide (Hydrochlorothiazide 12.5 Mg Cap) 12.5 mg PO DAILY [facility] Last Admin: 11/01/20 09:24 Dose: 12.5 mg Documented by: Lisinopril (Lisinopril 20 Mg Tab) 20 mg PO DAILY [facility] Last Admin: 11/01/20 09:26 Dose: 20 mg Documented by: Metoprolol Succinate (Metoprolol Succinate Xl 25 Mg Tab) 25 mg PO DAILY [facility] Last Admin: 11/01/20 09:24 Dose: 25 mg Documented by: Pantoprazole Sodium (Pantoprazole 40 Mg Tab) 40 mg PO QDAY [facility] Last Admin: 11/01/20 09:26 Dose: 40 mg Documented by: Pravastatin Sodium (Pravastatin 40 Mg Tab) 40 mg PO QHS [facility] Last Admin: 10/31/20 21:09 Dose: 40 mg Documented by: Trazodone HCl (Trazodone 100 Mg Tab) 100 mg PO QHS [facility] Last Admin: 10/31/20 21:09 Dose: 100 mg Documented by: Venlafaxine HCl (Venlafaxine Xr 75 Mg Cap) 75 mg PO QDAY [facility] Last Admin: 11/01/20 09:24 Dose: 75 mg Documented by: Results - Results Labs/Vitals: Laboratory Last Values WBC 6.2 K/mm3 (4.5-11.0) 10/29/20 07:41 RBC 4.41 M/mm3 (3.65-5.03) 10/29/20 07:41 Hgb 12.0 gm/dl (10.1-14.3) 10/29/20 07:41 Hct 34.5 % (30.3-42.9) 10/29/20 07:41 MCV 78 fl (79-97) L 10/29/20 07:41 MCH 27 pg (28-32) L 10/29/20 07:41 MCHC 35 % (30-34) H 10/29/20 07:41 RDW 18.2 % (13.2-15.2) H 10/29/20 07:41 Plt Count 294 K/mm3 (140-440) 10/29/20 07:41 Lymph % (Auto) 20.7 % (13.4-35.0) 10/29/20 07:41 [place] % (Auto) 9.6 % (0.0-7.3) H 10/29/20 07:41 Eos % (Auto) 3.8 % (0.0-4.3) 10/29/20 07:41 Baso % (Auto) 1.5 % (0.0-1.8) 10/29/20 07:41 Lymph # (Auto) 1.3 K/mm3 (1.2-5.4) 10/29/20 07:41 [place] # (Auto) 0.6 K/mm3 (0.0-0.8) 10/29/20 07:41 Eos # (Auto) 0.2 K/mm3 (0.0-0.4) 10/29/20 07:41 Baso # (Auto) 0.1 K/mm3 (0.0-0.1) 10/29/20 07:41 Seg Neutrophils % 64.4 % (40.0-70.0) 10/29/20 07:41 Seg Neutrophils # 4.0 K/mm3 (1.8-7.7) 10/29/20 07:41 Sodium 139 mmol/L (137-145) 10/29/20 07:41 Potassium 3.7 mmol/L (3.6-5.0) 10/29/20 07:41 Chloride 101.9 mmol/L (98-107) 10/29/20 07:41 Carbon Dioxide 28 mmol/L (22-30) 10/29/20 07:41 Anion Gap 13 mmol/L 10/29/20 07:41 BUN 7 mg/dL (7-17) 10/29/20 07:41 Creatinine 0.9 mg/dL (0.6-1.2) 10/29/20 07:41 Estimated GFR > 60 ml/min 10/29/20 07:41 BUN/Creatinine Ratio 8 % 10/29/20 07:41 Glucose 81 mg/dL (65-100) 10/29/20 07:41 POC Glucose 148 mg/dL (70-105) H 10/27/20 17:41 Hemoglobin A1c 4.5 % (4-6) 10/29/20 07:41 Calcium 8.3 mg/dL (8.4-10.2) L 10/29/20 07:41 Total Bilirubin 0.20 mg/dL (0.1-1.2) 10/29/20 07:41 AST 9 units/L (5-40) 10/29/20 07:41 ALT < 5 units/L (7-56) L 10/29/20 07:41 Alkaline Phosphatase 62 units/L (35-129) 10/29/20 07:41 Total Protein 5.7 g/dL (6.3-8.2) L 10/29/20 07:41 Albumin 3.0 g/dL (3.9-5) L 10/29/20 07:41 Albumin/Globulin Ratio 1.1 % 10/29/20 07:41 Triglycerides 128 mg/dL (2-149) 10/29/20 07:41 Cholesterol 141 mg/dL (50-199) 10/29/20 07:41 LDL Cholesterol Direct 81 mg/dL (50-130) 10/29/20 07:41 HDL Cholesterol 45 mg/dL (40-59) 10/29/20 07:41 Cholesterol/HDL Ratio 3.13 % 10/29/20 07:41 TSH 5.150 mlU/mL (0.270-4.200) H 10/29/20 07:41 Last Vital Signs Temp 98.2 F 10/31/20 22:00 Pulse 97 H 11/01/20 09:26 Resp 18 10/31/20 22:00 BP 135/71 11/01/20 09:26 Pulse Ox 94 10/31/20 22:00
[2020-11-01] MEDS: PRAVASTATIN 40 MG TAB PO SCH (21:13)
[2020-11-01] MEDS: traZODone 100 MG TAB PO SCH (21:13)
--- NOTE | 2020-11-02 07:39 | Progress Note ---
Subjective Date of service: 11/02/20 Principal diagnosis: MDD Subjective Comment: Note psych note last evening the patient interacted appropriately with her peers in the activity room. She presents as calm and content. She denies si/hi/ah/vh. Her appetite is good. She is medication compliant. Overnight the patient rested quietly. She presents as sleeping 8 hours. Will continue to monitor patient for safety. Psych Progress HPI Patient seen this a.m., patient reports she was depressed because of her son who was involved in drugs, and given a lot of stress mentally financially and also socially because she was concerned for his wellbeing and now she feels better because last communication with him he has enrolled into programs in rehab and since that was admitted stress she now feels better she is denying SI HI auditory or visual hallucinations. Patient also endorses desire to go home Reason for continuing inpatient treatment: We will observe for 1 more day of mood stability and start planning for safety discharge Review of Symptoms: Constitutional: Negative for weight loss ENT: Negative for stridor Respiratory: Negative for cough or hemoptysis All other systems reviewed and are negative MENTAL STATUS EXAMINATION General Appearance and Behavior: Age appropriate, good hygiene, wearing appropriate clothes, good eye contact, cooperative polite with questioning. Cooperation: Participating/engaged Psychomotor Behavior: unremarkable and within normal limits Mood: Good Affect and affective range: congruent with mood Thought Process: Fluent/Logical, Thought Content: Within reality, Speech: Normal volume, Regular rate and rhythm, Intellectual Functioning: Average Suicidal Ideation: Denies SI Homicidal Ideation: Denies HI Impulse Control: Unimpaired Insight and Judgment: Normal insight and judgment, Memory: Normal, Attention: Normal, Orientation: Alert, oriented, Treatment Plan Continue current medication Patient admitted for inpatient psychiatric evaluation, medication adjustment and close monitoring The patient's behavior, mood, sleep and appetite will be closely monitored. Patient enrolled in individual and group therapeutic sessions and encouraged to attend. Patient provided with a safe and structured environment. Patient's physical health needs will be addressed by the Hospitalist. Hospitalist Consulted Labs including CBC, CMP, Lipid profile and Hemoglobin A1C levels ordered for baseline reference Social Assessment will be completed and the Coordinator Of Online Programs will work with patient and family to ensure a suitable and safe disposition Medication adjustment will be made as clinically indicated Usual Wellness Episcopalian/Preservation: - Start Trazodone 50 mg po QHS & 50 mg po QHS PRN between 10 PM & 2 AM for insomnia - Start Melatonin 5 mg po QHS to promote circadian rhythm - Start [place]-3 for brain health, reduce impulsivity, and as adjunctive treatment for mood disorder, continue upon discharge given overall benefits. - Start B1 prophylaxis with 200 mg po for 5 days The patient agreed on the treatment plan, understood the risk, benefit, alternative treatment, potential consequence of no treatment, and gave informed consent. Initial Certification Inpatient psych services: I certify that the inpatient psychiatric services are required for treatment that could reasonably be expected to improve the patient's condition. Estimated days: 2 Post hospital care: primary care provider, psychiatric provider Medications and Allergies Allergies Allergy/AdvReac Type Severity Reaction Status Date / Time Penicillins Allergy Rash Verified 10/27/20 17:08 Home Medications Medication Instructions Recorded Confirmed Last Taken Type Alendronate Sodium [Fosamax] 70 mg PO QWEEK 10/28/20 10/28/20 Unknown History Amlodipine Besylate [Norvasc] 2.5 mg PO DAILY 10/28/20 10/28/20 Unknown History Aspirin EC [Halfprin EC] 81 mg PO QDAY 10/28/20 10/28/20 Unknown History Bupropion HCl [Wellbutrin XL] 300 mg PO QAM 10/28/20 10/28/20 Unknown History Calcium Carbonate/Vitamin D3 1 each PO BID 10/28/20 10/28/20 Unknown History [Calcium 500-Vit D3 200 Tablet] Levothyroxine [Synthroid] 125 mcg PO QAM 10/28/20 10/28/20 Unknown History Metoprolol Xl [Metoprolol 25 mg PO DAILY 10/28/20 10/28/20 Unknown History SUCCINATE ER TAB] Pantoprazole [Protonix] 40 mg PO QDAY 10/28/20 10/28/20 Unknown History Simvastatin 20 mg PO HS 10/28/20 10/28/20 Unknown History Venlafaxine HCl [Venlafaxin ER] 75 mg PO QDAY 10/28/20 10/28/20 Unknown History hydroCHLOROthiazide 12.5 mg PO DAILY 10/28/20 10/28/20 Unknown History [Hydrochlorothiazide] lisinopriL [Lisinopril] 20 mg PO DAILY 10/28/20 10/28/20 Unknown History traZODone [Desyrel] 100 mg PO QHS 10/28/20 10/28/20 Unknown History Active Meds: Active Medications Amlodipine Besylate (Amlodipine 5 Mg Tab) 2.5 mg PO QDAY [facility] Last Admin: 11/01/20 09:26 Dose: 2.5 mg Documented by: Aripiprazole (Aripiprazole 5 Mg Tab) 5 mg PO QDAY [facility] Last Admin: 11/01/20 09:25 Dose: 5 mg Documented by: Aspirin (Aspirin Ec 81 Mg Tab) 81 mg PO QDAY [facility] Last Admin: 11/01/20 09:24 Dose: 81 mg Documented by: Bupropion HCl (Bupropion Xl 150 Mg Tab) 300 mg PO QAM [facility] Last Admin: 11/01/20 09:27 Dose: 300 mg Documented by: Calcium/Vitamin D (Calcium Carbonate/Vitamin D3 500 Mg-200 Unit Tab) 1 each PO BID [facility] Last Admin: 11/01/20 21:13 Dose: 1 each Documented by: Hydrochlorothiazide (Hydrochlorothiazide 12.5 Mg Cap) 12.5 mg PO DAILY [facility] Last Admin: 11/01/20 09:24 Dose: 12.5 mg Documented by: Lisinopril (Lisinopril 20 Mg Tab) 20 mg PO DAILY [facility] Last Admin: 11/01/20 09:26 Dose: 20 mg Documented by: Metoprolol Succinate (Metoprolol Succinate Xl 25 Mg Tab) 25 mg PO DAILY [facility] Last Admin: 11/01/20 09:24 Dose: 25 mg Documented by: Pantoprazole Sodium (Pantoprazole 40 Mg Tab) 40 mg PO BID [facility] Last Admin: 11/01/20 21:13 Dose: 40 mg Documented by: Pravastatin Sodium (Pravastatin 40 Mg Tab) 40 mg PO QHS [facility] Last Admin: 11/01/20 21:13 Dose: 40 mg Documented by: Trazodone HCl (Trazodone 100 Mg Tab) 100 mg PO QHS [facility] Last Admin: 11/01/20 21:13 Dose: 100 mg Documented by: Venlafaxine HCl (Venlafaxine Xr 75 Mg Cap) 75 mg PO QDAY [facility] Last Admin: 11/01/20 09:24 Dose: 75 mg Documented by: Results - Results Labs/Vitals: Laboratory Last Values WBC 6.2 K/mm3 (4.5-11.0) 10/29/20 07:41 RBC 4.41 M/mm3 (3.65-5.03) 10/29/20 07:41 Hgb 12.0 gm/dl (10.1-14.3) 10/29/20 07:41 Hct 34.5 % (30.3-42.9) 10/29/20 07:41 MCV 78 fl (79-97) L 10/29/20 07:41 MCH 27 pg (28-32) L 10/29/20 07:41 MCHC 35 % (30-34) H 10/29/20 07:41 RDW 18.2 % (13.2-15.2) H 10/29/20 07:41 Plt Count 294 K/mm3 (140-440) 10/29/20 07:41 Lymph % (Auto) 20.7 % (13.4-35.0) 10/29/20 07:41 [place] % (Auto) 9.6 % (0.0-7.3) H 10/29/20 07:41 Eos % (Auto) 3.8 % (0.0-4.3) 10/29/20 07:41 Baso % (Auto) 1.5 % (0.0-1.8) 10/29/20 07:41 Lymph # (Auto) 1.3 K/mm3 (1.2-5.4) 10/29/20 07:41 [place] # (Auto) 0.6 K/mm3 (0.0-0.8) 10/29/20 07:41 Eos # (Auto) 0.2 K/mm3 (0.0-0.4) 10/29/20 07:41 Baso # (Auto) 0.1 K/mm3 (0.0-0.1) 10/29/20 07:41 Seg Neutrophils % 64.4 % (40.0-70.0) 10/29/20 07:41 Seg Neutrophils # 4.0 K/mm3 (1.8-7.7) 10/29/20 07:41 Sodium 139 mmol/L (137-145) 10/29/20 07:41 Potassium 3.7 mmol/L (3.6-5.0) 10/29/20 07:41 Chloride 101.9 mmol/L (98-107) 10/29/20 07:41 Carbon Dioxide 28 mmol/L (22-30) 10/29/20 07:41 Anion Gap 13 mmol/L 10/29/20 07:41 BUN 7 mg/dL (7-17) 10/29/20 07:41 Creatinine 0.9 mg/dL (0.6-1.2) 10/29/20 07:41 Estimated GFR > 60 ml/min 10/29/20 07:41 BUN/Creatinine Ratio 8 % 10/29/20 07:41 Glucose 81 mg/dL (65-100) 10/29/20 07:41 POC Glucose 148 mg/dL (70-105) H 10/27/20 17:41 Hemoglobin A1c 4.5 % (4-6) 10/29/20 07:41 Calcium 8.3 mg/dL (8.4-10.2) L 10/29/20 07:41 Total Bilirubin 0.20 mg/dL (0.1-1.2) 10/29/20 07:41 AST 9 units/L (5-40) 10/29/20 07:41 ALT < 5 units/L (7-56) L 10/29/20 07:41 Alkaline Phosphatase 62 units/L (35-129) 10/29/20 07:41 Total Protein 5.7 g/dL (6.3-8.2) L 10/29/20 07:41 Albumin 3.0 g/dL (3.9-5) L 10/29/20 07:41 Albumin/Globulin Ratio 1.1 % 10/29/20 07:41 Triglycerides 128 mg/dL (2-149) 10/29/20 07:41 Cholesterol 141 mg/dL (50-199) 10/29/20 07:41 LDL Cholesterol Direct 81 mg/dL (50-130) 10/29/20 07:41 HDL Cholesterol 45 mg/dL (40-59) 10/29/20 07:41 Cholesterol/HDL Ratio 3.13 % 10/29/20 07:41 TSH 5.150 mlU/mL (0.270-4.200) H 10/29/20 07:41 Last Vital Signs Temp 98.5 F 11/01/20 22:00 Pulse 77 11/01/20 22:00 Resp 18 11/01/20 22:00 BP 141/89 11/01/20 22:00 Pulse Ox 97 11/01/20 22:00
[2020-11-02] MEDS: VENLAFAXINE XR 75 MG CAP PO SCH (10:18)
[2020-11-02] MEDS: CALCIUM CARBONATE/VITAMIN D3 500 MG-200 UNIT TAB PO SCH ×2 (10:18→21:17)
[2020-11-02] MEDS: buPROPion XL 150 MG TAB PO SCH (10:18)
[2020-11-02] MEDS: ARIPiprazole 5 MG TAB PO SCH (10:18)
[2020-11-02] MEDS: PANTOPRAZOLE 40 MG TAB PO SCH ×2 (10:18→21:17)
[2020-11-02] MEDS: hydroCHLOROthiazide 12.5 MG CAP PO SCH (10:19)
[2020-11-02] MEDS: amLODIPine 5 MG TAB PO SCH (10:19)
[2020-11-02] MEDS: METOPROLOL SUCCINATE XL 25 MG TAB PO SCH (10:20)
[2020-11-02] MEDS: LISINOPRIL 20 MG TAB PO SCH (10:20)
[2020-11-02] MEDS: ASPIRIN EC 81 MG TAB PO SCH (10:22)
--- NOTE | 2020-11-02 19:24 | Progress Note ---
Assessment and Plan - Patient Problems (1) Vascular dementia with behavioral disturbance Status: Acute Plan to address problem: Verbal prompting, reviewed redirection, benzodiazepine therapy, as clinically indicated, supportive care. (2) Cerebral atherosclerosis Status: Acute Plan to address problem: Risk factor reduction, antiplatelet therapy. (3) GERD (gastroesophageal reflux disease) Status: Chronic Qualifiers: Esophagitis presence: without esophagitis Qualified Code(s): K21.9 - Gastro-esophageal reflux disease without esophagitis Plan to address problem: PPI therapy as clinically indicated, (4) Hyperlipidemia Status: Chronic Qualifiers: Hyperlipidemia type: mixed hyperlipidemia Qualified Code(s): E78.2 - Mixed hyperlipidemia Plan to address problem: Low-cholesterol diet, statin therapy (5) Hypertension Status: Chronic Qualifiers: Hypertension type: primary hypertension Qualified Code(s): I10 - Essential (primary) hypertension Plan to address problem: Monitor blood pressure every shift, continue medical management, History Interval history: 69 YO Female with HTN, HLD, Hypothyroidism, Vascular Dementia with Behavioral Disturbance, Cerebral Atherosclerosis admitted to [facility] psych unit for psychiatric stabilization. Patient seen and evaluated in the recreation room. No reported nursing events. Patient denies pain. Patient cooperative with exam and interview. Hospitalist Physical - Constitutional Vitals: Temp Pulse Resp BP Pulse Ox 98.4 F 89 18 127/75 96 11/02/20 09:33 11/02/20 10:20 11/02/20 09:33 11/02/20 10:20 11/02/20 09:33 General appearance: Present: no acute distress, well-nourished - EENT Eyes: Present: PERRL ENT: hearing decreased - Neck Neck: Present: supple - Respiratory Respiratory effort: normal Respiratory: bilateral: CTA - Cardiovascular Rhythm: regular - Extremities Extremities: no ischemia Peripheral Pulses: within normal limits - Abdominal General gastrointestinal: soft, non-tender, non-distended - Integumentary Integumentary: Present: clear, dry - Psychiatric Psychiatric: cooperative - Neurologic Neurologic: CNII-XII intact Results - Labs CBC & Chem 7: 10/29/20 07:41 10/29/20 07:41 Labs: Laboratory Last Values WBC 6.2 K/mm3 (4.5-11.0) 10/29/20 07:41 RBC 4.41 M/mm3 (3.65-5.03) 10/29/20 07:41 Hgb 12.0 gm/dl (10.1-14.3) 10/29/20 07:41 Hct 34.5 % (30.3-42.9) 10/29/20 07:41 MCV 78 fl (79-97) L 10/29/20 07:41 MCH 27 pg (28-32) L 10/29/20 07:41 MCHC 35 % (30-34) H 10/29/20 07:41 RDW 18.2 % (13.2-15.2) H 10/29/20 07:41 Plt Count 294 K/mm3 (140-440) 10/29/20 07:41 Lymph % (Auto) 20.7 % (13.4-35.0) 10/29/20 07:41 [place] % (Auto) 9.6 % (0.0-7.3) H 10/29/20 07:41 Eos % (Auto) 3.8 % (0.0-4.3) 10/29/20 07:41 Baso % (Auto) 1.5 % (0.0-1.8) 10/29/20 07:41 Lymph # (Auto) 1.3 K/mm3 (1.2-5.4) 10/29/20 07:41 [place] # (Auto) 0.6 K/mm3 (0.0-0.8) 10/29/20 07:41 Eos # (Auto) 0.2 K/mm3 (0.0-0.4) 10/29/20 07:41 Baso # (Auto) 0.1 K/mm3 (0.0-0.1) 10/29/20 07:41 Seg Neutrophils % 64.4 % (40.0-70.0) 10/29/20 07:41 Seg Neutrophils # 4.0 K/mm3 (1.8-7.7) 10/29/20 07:41 Sodium 139 mmol/L (137-145) 10/29/20 07:41 Potassium 3.7 mmol/L (3.6-5.0) 10/29/20 07:41 Chloride 101.9 mmol/L (98-107) 10/29/20 07:41 Carbon Dioxide 28 mmol/L (22-30) 10/29/20 07:41 Anion Gap 13 mmol/L 10/29/20 07:41 BUN 7 mg/dL (7-17) 10/29/20 07:41 Creatinine 0.9 mg/dL (0.6-1.2) 10/29/20 07:41 Estimated GFR > 60 ml/min 10/29/20 07:41 BUN/Creatinine Ratio 8 % 10/29/20 07:41 Glucose 81 mg/dL (65-100) 10/29/20 07:41 POC Glucose 148 mg/dL (70-105) H 10/27/20 17:41 Hemoglobin A1c 4.5 % (4-6) 10/29/20 07:41 Calcium 8.3 mg/dL (8.4-10.2) L 10/29/20 07:41 Total Bilirubin 0.20 mg/dL (0.1-1.2) 10/29/20 07:41 AST 9 units/L (5-40) 10/29/20 07:41 ALT < 5 units/L (7-56) L 10/29/20 07:41 Alkaline Phosphatase 62 units/L (35-129) 10/29/20 07:41 Total Protein 5.7 g/dL (6.3-8.2) L 10/29/20 07:41 Albumin 3.0 g/dL (3.9-5) L 10/29/20 07:41 Albumin/Globulin Ratio 1.1 % 10/29/20 07:41 Triglycerides 128 mg/dL (2-149) 10/29/20 07:41 Cholesterol 141 mg/dL (50-199) 10/29/20 07:41 LDL Cholesterol Direct 81 mg/dL (50-130) 10/29/20 07:41 HDL Cholesterol 45 mg/dL (40-59) 10/29/20 07:41 Cholesterol/HDL Ratio 3.13 % 10/29/20 07:41 TSH 5.150 mlU/mL (0.270-4.200) H 10/29/20 07:41 [place]/IV: Voiding Method Toilet Active Medications - Current Medications Current Medications: Generic Name Dose Route Start Last Admin Trade Name Freq PRN Reason Stop Dose Admin Amlodipine Besylate 2.5 mg 10/28/20 11:00 11/02/20 10:19 Amlodipine 5 Mg Tab PO 2.5 mg QDAY JESSICA Administration Aripiprazole 5 mg 05/25/21 10:00 11/02/20 10:18 Aripiprazole 5 Mg Tab PO 5 mg QDAY JESSICA Administration Aspirin 81 mg 10/28/20 11:00 11/02/20 10:22 Aspirin Ec 81 Mg Tab PO 81 mg QDAY JESSICA Administration Bupropion HCl 300 mg 10/28/20 11:00 11/02/20 10:18 Bupropion Xl 150 Mg Tab PO 300 mg QAM JESSICA Administration Calcium/Vitamin D 1 each 10/28/20 22:00 11/02/20 10:18 Calcium Carbonate/Vitamin D3 500 Mg-200 Unit Tab PO 1 each BID JESSICA Administration Hydrochlorothiazide 12.5 mg 10/28/20 12:00 11/02/20 10:19 Hydrochlorothiazide 12.5 Mg Cap PO 12.5 mg DAILY JESSICA Administration Lisinopril 20 mg 10/28/20 11:00 11/02/20 10:20 Lisinopril 20 Mg Tab PO 20 mg DAILY JESSICA Administration Metoprolol Succinate 25 mg 10/28/20 12:00 11/02/20 10:20 Metoprolol Succinate Xl 25 Mg Tab PO 25 mg DAILY JESSICA Administration Pantoprazole Sodium 40 mg 11/01/20 22:00 11/02/20 10:18 Pantoprazole 40 Mg Tab PO 40 mg BID JESSICA Administration Pravastatin Sodium 40 mg 10/28/20 22:00 11/01/20 21:13 Pravastatin 40 Mg Tab PO 40 mg QHS JESSICA Administration Trazodone HCl 100 mg 10/28/20 22:00 11/01/20 21:13 Trazodone 100 Mg Tab PO 100 mg QHS JESSICA Administration Venlafaxine HCl 75 mg 10/28/20 12:00 11/02/20 10:18 Venlafaxine Xr 75 Mg Cap PO 75 mg QDAY JESSICA Administration Nutrition/Malnutrition Assess - Dietary Evaluation Nutrition/Malnutrition Findings: Nutrition Notes Start: 11/01/20 09:09 Freq: Status: Active Protocol: Document 11/01/20 09:09 REGINO (Rec: 11/01/20 09:10 REGINO [id number]) Nutrition Notes Initial or Follow up Brief Note Subjective/Other Information Screen for LOS. Pt eating 75- 100% of meals. Nutrition Intervention Revisit per MD consult or patient Sign Off request:
[2020-11-02] MEDS: PRAVASTATIN 40 MG TAB PO SCH (21:17)
[2020-11-02] MEDS: traZODone 100 MG TAB PO SCH (21:17)
[2020-11-03] MEDS: hydroCHLOROthiazide 12.5 MG CAP PO SCH (09:14)
[2020-11-03] MEDS: CALCIUM CARBONATE/VITAMIN D3 500 MG-200 UNIT TAB PO SCH ×2 (09:14→21:14)
[2020-11-03] MEDS: ASPIRIN EC 81 MG TAB PO SCH (09:14)
[2020-11-03] MEDS: buPROPion XL 150 MG TAB PO SCH (09:14)
[2020-11-03] MEDS: ARIPiprazole 5 MG TAB PO SCH (09:14)
[2020-11-03] MEDS: VENLAFAXINE XR 75 MG CAP PO SCH (09:14)
[2020-11-03] MEDS: METOPROLOL SUCCINATE XL 25 MG TAB PO SCH (09:15)
[2020-11-03] MEDS: LISINOPRIL 20 MG TAB PO SCH (09:15)
[2020-11-03] MEDS: amLODIPine 5 MG TAB PO SCH (09:16)
[2020-11-03] MEDS: PANTOPRAZOLE 40 MG TAB PO SCH ×2 (09:23→21:14)
--- NOTE | 2020-11-03 10:57 | Progress Note ---
Subjective Date of service: 11/03/20 Principal diagnosis: MDD Subjective Comment: Nurse psych note: pt spent the evening in activity room interacting with peer, alert and oriented x4, calm and cooperative, able to make needs known, denies si/hi, denies a/v/h, medication compliant, good appetite, no distress noted, will continue to monitor for safety.. Psych Progress HPI Patient describes a good and stable mood, denies being depressed or excessively nervous. Patient eats and sleeps well. Patient denies panic attacks, recurrent nightmares or flashbacks. Patient denies symptoms suggestive of OCD or PTSD. Patient denies hallucinations, paranoia, thought interference and no features suggestive of hypomania or gemini. Patiently completely denies suicidal or homicidal thoughts. Reason for continuing inpatient treatment: Patient cleared for discharge, being held back pending SW evaluation. Review of Symptoms: Constitutional: Negative for weight loss ENT: Negative for stridor Respiratory: Negative for cough or hemoptysis All other systems reviewed and are negative MENTAL STATUS EXAMINATION General Appearance and Behavior: Age appropriate, good hygiene, wearing appropriate clothes, good eye contact, cooperative polite with questioning. Cooperation: Participating/engaged Psychomotor Behavior: unremarkable and within normal limits Mood: Good Affect and affective range: congruent with mood Thought Process: Fluent/Logical, Thought Content: Within reality, Speech: Normal volume, Regular rate and rhythm, Intellectual Functioning: Average Suicidal Ideation: Denies SI Homicidal Ideation: Denies HI Impulse Control: Unimpaired Insight and Judgment: Normal insight and judgment, Memory: Normal, Attention: Normal, Orientation: Alert, oriented, Treatment Plan Continue current medication Patient admitted for inpatient psychiatric evaluation, medication adjustment and close monitoring The patient's behavior, mood, sleep and appetite will be closely monitored. Patient enrolled in individual and group therapeutic sessions and encouraged to attend. Patient provided with a safe and structured environment. Patient's physical health needs will be addressed by the Hospitalist. Hospitalist Consulted Labs including CBC, CMP, Lipid profile and Hemoglobin A1C levels ordered for baseline reference Social Assessment will be completed and the Chainstitch Binder will work with patient and family to ensure a suitable and safe disposition Medication adjustment will be made as clinically indicated Usual Wellness [facility]/Preservation: - Start Trazodone 50 mg po QHS & 50 mg po QHS PRN between 10 PM & 2 AM for insomnia - Start Melatonin 5 mg po QHS to promote circadian rhythm - Start [place]-3 for brain health, reduce impulsivity, and as adjunctive treat ment for mood disorder, continue upon discharge given overall benefits. - Start B1 prophylaxis with 200 mg po for 5 days The patient agreed on the treatment plan, understood the risk, benefit, alter la posta treatment, potential consequence of no treatment, and gave informed consent. Initial Certification Inpatient psych services: I certify that the inpatient psychiatric services are required for treatment that could reasonably be expected to improve the patient's condition. Estimated days: 2 Post hospital care: primary care provider, psychiatric provider Medications and Allergies Allergies Allergy/AdvReac Type Severity Reaction Status Date / Time Penicillins Allergy Rash Verified 10/27/20 17:08 Home Medications Medication Instructions Recorded Confirmed Last Taken Type Alendronate Sodium [Fosamax] 70 mg PO QWEEK 10/28/20 10/28/20 Unknown History Amlodipine Besylate [Norvasc] 2.5 mg PO DAILY 10/28/20 10/28/20 Unknown History Aspirin EC [Halfprin EC] 81 mg PO QDAY 10/28/20 10/28/20 Unknown History Bupropion HCl [Wellbutrin XL] 300 mg PO QAM 10/28/20 10/28/20 Unknown History Calcium Carbonate/Vitamin D3 1 each PO BID 10/28/20 10/28/20 Unknown History [Calcium 500-Vit D3 200 Tablet] Levothyroxine [Synthroid] 125 mcg PO QAM 10/28/20 10/28/20 Unknown History Metoprolol Xl [Metoprolol 25 mg PO DAILY 10/28/20 10/28/20 Unknown History SUCCINATE ER TAB] Pantoprazole [Protonix] 40 mg PO QDAY 10/28/20 10/28/20 Unknown History Simvastatin 20 mg PO HS 10/28/20 10/28/20 Unknown History Venlafaxine HCl [Venlafaxin ER] 75 mg PO QDAY 10/28/20 10/28/20 Unknown History hydroCHLOROthiazide 12.5 mg PO DAILY 10/28/20 10/28/20 Unknown History [Hydrochlorothiazide] lisinopriL [Lisinopril] 20 mg PO DAILY 10/28/20 10/28/20 Unknown History traZODone [Desyrel] 100 mg PO QHS 10/28/20 10/28/20 Unknown History Active Meds: Active Medications Amlodipine Besylate (Amlodipine 5 Mg Tab) 2.5 mg PO QDAY [facility] Last Admin: 11/03/20 09:16 Dose: 2.5 mg Documented by: Aripiprazole (Aripiprazole 5 Mg Tab) 5 mg PO QDAY [facility] Last Admin: 11/03/20 09:14 Dose: 5 mg Documented by: Aspirin (Aspirin Ec 81 Mg Tab) 81 mg PO QDAY [facility] Last Admin: 11/03/20 09:14 Dose: 81 mg Documented by: Bupropion HCl (Bupropion Xl 150 Mg Tab) 300 mg PO QAM [facility] Last Admin: 11/03/20 09:14 Dose: 300 mg Documented by: Calcium/Vitamin D (Calcium Carbonate/Vitamin D3 500 Mg-200 Unit Tab) 1 each PO BID [facility] Last Admin: 11/03/20 09:14 Dose: 1 each Documented by: Hydrochlorothiazide (Hydrochlorothiazide 12.5 Mg Cap) 12.5 mg PO DAILY [facility] Last Admin: 11/03/20 09:14 Dose: 12.5 mg Documented by: Lisinopril (Lisinopril 20 Mg Tab) 20 mg PO DAILY [facility] Last Admin: 11/03/20 09:15 Dose: 20 mg Documented by: Metoprolol Succinate (Metoprolol Succinate Xl 25 Mg Tab) 25 mg PO DAILY [facility] Last Admin: 11/03/20 09:15 Dose: 25 mg Documented by: Pantoprazole Sodium (Pantoprazole 40 Mg Tab) 40 mg PO BID [facility] Last Admin: 11/03/20 09:23 Dose: 40 mg Documented by: Pravastatin Sodium (Pravastatin 40 Mg Tab) 40 mg PO QHS [facility] Last Admin: 11/02/20 21:17 Dose: 40 mg Documented by: Trazodone HCl (Trazodone 100 Mg Tab) 100 mg PO QHS [facility] Last Admin: 11/02/20 21:17 Dose: 100 mg Documented by: Venlafaxine HCl (Venlafaxine Xr 75 Mg Cap) 75 mg PO QDAY [facility] Last Admin: 11/03/20 09:14 Dose: 75 mg Documented by: Results - Results Labs/Vitals: Laboratory Last Values WBC 6.2 K/mm3 (4.5-11.0) 10/29/20 07:41 RBC 4.41 M/mm3 (3.65-5.03) 10/29/20 07:41 Hgb 12.0 gm/dl (10.1-14.3) 10/29/20 07:41 Hct 34.5 % (30.3-42.9) 10/29/20 07:41 MCV 78 fl (79-97) L 10/29/20 07:41 MCH 27 pg (28-32) L 10/29/20 07:41 MCHC 35 % (30-34) H 10/29/20 07:41 RDW 18.2 % (13.2-15.2) H 10/29/20 07:41 Plt Count 294 K/mm3 (140-440) 10/29/20 07:41 Lymph % (Auto) 20.7 % (13.4-35.0) 10/29/20 07:41 [place] % (Auto) 9.6 % (0.0-7.3) H 10/29/20 07:41 Eos % (Auto) 3.8 % (0.0-4.3) 10/29/20 07:41 Baso % (Auto) 1.5 % (0.0-1.8) 10/29/20 07:41 Lymph # (Auto) 1.3 K/mm3 (1.2-5.4) 10/29/20 07:41 [place] # (Auto) 0.6 K/mm3 (0.0-0.8) 10/29/20 07:41 Eos # (Auto) 0.2 K/mm3 (0.0-0.4) 10/29/20 07:41 Baso # (Auto) 0.1 K/mm3 (0.0-0.1) 10/29/20 07:41 Seg Neutrophils % 64.4 % (40.0-70.0) 10/29/20 07:41 Seg Neutrophils # 4.0 K/mm3 (1.8-7.7) 10/29/20 07:41 Sodium 139 mmol/L (137-145) 10/29/20 07:41 Potassium 3.7 mmol/L (3.6-5.0) 10/29/20 07:41 Chloride 101.9 mmol/L (98-107) 10/29/20 07:41 Carbon Dioxide 28 mmol/L (22-30) 10/29/20 07:41 Anion Gap 13 mmol/L 10/29/20 07:41 BUN 7 mg/dL (7-17) 10/29/20 07:41 Creatinine 0.9 mg/dL (0.6-1.2) 10/29/20 07:41 Estimated GFR > 60 ml/min 10/29/20 07:41 BUN/Creatinine Ratio 8 % 10/29/20 07:41 Glucose 81 mg/dL (65-100) 10/29/20 07:41 POC Glucose 148 mg/dL (70-105) H 10/27/20 17:41 Hemoglobin A1c 4.5 % (4-6) 10/29/20 07:41 Calcium 8.3 mg/dL (8.4-10.2) L 10/29/20 07:41 Total Bilirubin 0.20 mg/dL (0.1-1.2) 10/29/20 07:41 AST 9 units/L (5-40) 10/29/20 07:41 ALT < 5 units/L (7-56) L 10/29/20 07:41 Alkaline Phosphatase 62 units/L (35-129) 10/29/20 07:41 Total Protein 5.7 g/dL (6.3-8.2) L 10/29/20 07:41 Albumin 3.0 g/dL (3.9-5) L 10/29/20 07:41 Albumin/Globulin Ratio 1.1 % 10/29/20 07:41 Triglycerides 128 mg/dL (2-149) 10/29/20 07:41 Cholesterol 141 mg/dL (50-199) 10/29/20 07:41 LDL Cholesterol Direct 81 mg/dL (50-130) 10/29/20 07:41 HDL Cholesterol 45 mg/dL (40-59) 10/29/20 07:41 Cholesterol/HDL Ratio 3.13 % 10/29/20 07:41 TSH 5.150 mlU/mL (0.270-4.200) H 10/29/20 07:41 Last Vital Signs Temp 98.6 F 11/03/20 08:59 Pulse 87 11/03/20 09:16 Resp 16 11/03/20 08:59 BP 132/79 11/03/20 09:16 Pulse Ox 93 11/03/20 08:59
[2020-11-03] MEDS: traZODone 100 MG TAB PO SCH (21:14)
[2020-11-03] MEDS: PRAVASTATIN 40 MG TAB PO SCH (21:14)
[2020-11-04 08:18] VITALS: BP 151/94
--- NOTE | 2020-11-04 08:32 | Progress Note ---
Subjective Date of service: 11/04/20 Principal diagnosis: MDD Subjective Comment: Per Nurse Note: The patient was seen today, she looks a little irritable. She says "I'm just ready to go home and see my dogs." The patient says "I promise I want do that again. My wants me home too." She denies SI/HI or hallucinations of any kind. Reason for continued inpatient treatment: The patient has consistently denied suicidal thoughts, but she had a suicide attempt and initially was not upfront about it. Will continue to monitor and treat to ensue she discharges safely. REVIEW OF SYSTEMS Constitutional: Negative for weight loss ENT: Negative for stridor Respiratory: Negative for cough or hemoptysis All other systems reviewed and are negative MENTAL STATUS EXAMINATION General Appearance and Behavior: Age appropriate, good hygiene, not wearing appropriate clothes, good eye contact, cooperative polite with questioning. Cooperation: Participating/engaged Psychomotor Behavior: Psychomotor normal Mood: depressed, stressed Affect and affective range: congruent with stated mood Thought Process: goal directed Thought Content: hopelessness Speech: normal tone and pace Intellectual Functioning: Average Suicidal Ideation: Denies SI Homicidal Ideation: Denies HI Impulse Control: Impaired Insight and Judgment: Limited insight and judgment Memory: Normal, Attention: Divided attention impaired Orientation: Alert, oriented, Assessment and Plan (1) Major Depressive Disorder Current Visit: Yes Status: Acute Treatment Plan Patient admitted for inpatient psychiatric evaluation, medication adjustment and close monitoring The patient's behavior, mood, sleep and appetite will be closely monitored. Patient enrolled in individual and group therapeutic sessions and encouraged to attend. Patient provided with a safe and structured environment. Patient's physical health needs will be addressed by the Hospitalist. Hospitalist Consulted Labs including CBC, CMP, Lipid profile and Hemoglobin A1C levels ordered for baseline reference Social Assessment will be completed and the Tenterer will work with patient and family to ensure a suitable and safe disposition Medication adjustment will be made as clinically indicated No changes today Usual Wellness [facility]/Preservation: - Start Trazodone 50 mg po QHS & 50 mg po QHS PRN between 10 PM & 2 AM for insomnia - Start Melatonin 5 mg po QHS to promote circadian rhythm - Start [place]-3 for brain health, reduce impulsivity, and as adjunctive treatment for mood disorder, continue upon discharge given overall benefits. - Start B1 prophylaxis with 200 mg po for 5 days The patient agreed on the treatment plan, understood the risk, benefit, alternative treatment, potential consequence of no treatment, and gave informed consent. Estimated days: 5 Post hospital care: primary care provider, psychiatric provider Medications and Allergies Allergies Allergy/AdvReac Type Severity Reaction Status Date / Time Penicillins Allergy Rash Verified 10/27/20 17:08 Home Medications Medication Instructions Recorded Confirmed Last Taken Type Alendronate Sodium [Fosamax] 70 mg PO QWEEK 10/28/20 10/28/20 Unknown History Amlodipine Besylate [Norvasc] 2.5 mg PO DAILY 10/28/20 10/28/20 Unknown History Aspirin EC [Halfprin EC] 81 mg PO QDAY 10/28/20 10/28/20 Unknown History Bupropion HCl [Wellbutrin XL] 300 mg PO QAM 10/28/20 10/28/20 Unknown History Calcium Carbonate/Vitamin D3 1 each PO BID 10/28/20 10/28/20 Unknown History [Calcium 500-Vit D3 200 Tablet] Levothyroxine [Synthroid] 125 mcg PO QAM 10/28/20 10/28/20 Unknown History Metoprolol Xl [Metoprolol 25 mg PO DAILY 10/28/20 10/28/20 Unknown History SUCCINATE ER TAB] Pantoprazole [Protonix] 40 mg PO QDAY 10/28/20 10/28/20 Unknown History Simvastatin 20 mg PO HS 10/28/20 10/28/20 Unknown History Venlafaxine HCl [Venlafaxin ER] 75 mg PO QDAY 10/28/20 10/28/20 Unknown History hydroCHLOROthiazide 12.5 mg PO DAILY 10/28/20 10/28/20 Unknown History [Hydrochlorothiazide] lisinopriL [Lisinopril] 20 mg PO DAILY 10/28/20 10/28/20 Unknown History traZODone [Desyrel] 100 mg PO QHS 10/28/20 10/28/20 Unknown History Active Meds: Active Medications Amlodipine Besylate (Amlodipine 5 Mg Tab) 2.5 mg PO QDAY [facility] Last Admin: 11/03/20 09:16 Dose: 2.5 mg Documented by: Aripiprazole (Aripiprazole 5 Mg Tab) 5 mg PO QDAY [facility] Last Admin: 11/03/20 09:14 Dose: 5 mg Documented by: Aspirin (Aspirin Ec 81 Mg Tab) 81 mg PO QDAY [facility] Last Admin: 11/03/20 09:14 Dose: 81 mg Documented by: Bupropion HCl (Bupropion Xl 150 Mg Tab) 300 mg PO QAM [facility] Last Admin: 11/03/20 09:14 Dose: 300 mg Documented by: Calcium/Vitamin D (Calcium Carbonate/Vitamin D3 500 Mg-200 Unit Tab) 1 each PO BID [facility] Last Admin: 11/03/20 21:14 Dose: 1 each Documented by: Hydrochlorothiazide (Hydrochlorothiazide 12.5 Mg Cap) 12.5 mg PO DAILY [facility] Last Admin: 11/03/20 09:14 Dose: 12.5 mg Documented by: Lisinopril (Lisinopril 20 Mg Tab) 20 mg PO DAILY [facility] Last Admin: 11/03/20 09:15 Dose: 20 mg Documented by: Metoprolol Succinate (Metoprolol Succinate Xl 25 Mg Tab) 25 mg PO DAILY [facility] Last Admin: 11/03/20 09:15 Dose: 25 mg Documented by: Pantoprazole Sodium (Pantoprazole 40 Mg Tab) 40 mg PO BID [facility] Last Admin: 11/03/20 21:14 Dose: 40 mg Documented by: Pravastatin Sodium (Pravastatin 40 Mg Tab) 40 mg PO QHS [facility] Last Admin: 11/03/20 21:14 Dose: 40 mg Documented by: Trazodone HCl (Trazodone 100 Mg Tab) 100 mg PO QHS [facility] Last Admin: 11/03/20 21:14 Dose: 100 mg Documented by: Venlafaxine HCl (Venlafaxine Xr 75 Mg Cap) 75 mg PO QDAY [facility] Last Admin: 11/03/20 09:14 Dose: 75 mg Documented by: Results - Results Labs/Vitals: Laboratory Last Values WBC 6.2 K/mm3 (4.5-11.0) 10/29/20 07:41 RBC 4.41 M/mm3 (3.65-5.03) 10/29/20 07:41 Hgb 12.0 gm/dl (10.1-14.3) 10/29/20 07:41 Hct 34.5 % (30.3-42.9) 10/29/20 07:41 MCV 78 fl (79-97) L 10/29/20 07:41 MCH 27 pg (28-32) L 10/29/20 07:41 MCHC 35 % (30-34) H 10/29/20 07:41 RDW 18.2 % (13.2-15.2) H 10/29/20 07:41 Plt Count 294 K/mm3 (140-440) 10/29/20 07:41 Lymph % (Auto) 20.7 % (13.4-35.0) 10/29/20 07:41 [place] % (Auto) 9.6 % (0.0-7.3) H 10/29/20 07:41 Eos % (Auto) 3.8 % (0.0-4.3) 10/29/20 07:41 Baso % (Auto) 1.5 % (0.0-1.8) 10/29/20 07:41 Lymph # (Auto) 1.3 K/mm3 (1.2-5.4) 10/29/20 07:41 [place] # (Auto) 0.6 K/mm3 (0.0-0.8) 10/29/20 07:41 Eos # (Auto) 0.2 K/mm3 (0.0-0.4) 10/29/20 07:41 Baso # (Auto) 0.1 K/mm3 (0.0-0.1) 10/29/20 07:41 Seg Neutrophils % 64.4 % (40.0-70.0) 10/29/20 07:41 Seg Neutrophils # 4.0 K/mm3 (1.8-7.7) 10/29/20 07:41 Sodium 139 mmol/L (137-145) 10/29/20 07:41 Potassium 3.7 mmol/L (3.6-5.0) 10/29/20 07:41 Chloride 101.9 mmol/L (98-107) 10/29/20 07:41 Carbon Dioxide 28 mmol/L (22-30) 10/29/20 07:41 Anion Gap 13 mmol/L 10/29/20 07:41 BUN 7 mg/dL (7-17) 10/29/20 07:41 Creatinine 0.9 mg/dL (0.6-1.2) 10/29/20 07:41 Estimated GFR > 60 ml/min 10/29/20 07:41 BUN/Creatinine Ratio 8 % 10/29/20 07:41 Glucose 81 mg/dL (65-100) 10/29/20 07:41 POC Glucose 148 mg/dL (70-105) H 10/27/20 17:41 Hemoglobin A1c 4.5 % (4-6) 10/29/20 07:41 Calcium 8.3 mg/dL (8.4-10.2) L 10/29/20 07:41 Total Bilirubin 0.20 mg/dL (0.1-1.2) 10/29/20 07:41 AST 9 units/L (5-40) 10/29/20 07:41 ALT < 5 units/L (7-56) L 10/29/20 07:41 Alkaline Phosphatase 62 units/L (35-129) 10/29/20 07:41 Total Protein 5.7 g/dL (6.3-8.2) L 10/29/20 07:41 Albumin 3.0 g/dL (3.9-5) L 10/29/20 07:41 Albumin/Globulin Ratio 1.1 % 10/29/20 07:41 Triglycerides 128 mg/dL (2-149) 10/29/20 07:41 Cholesterol 141 mg/dL (50-199) 10/29/20 07:41 LDL Cholesterol Direct 81 mg/dL (50-130) 10/29/20 07:41 HDL Cholesterol 45 mg/dL (40-59) 10/29/20 07:41 Cholesterol/HDL Ratio 3.13 % 10/29/20 07:41 TSH 5.150 mlU/mL (0.270-4.200) H 10/29/20 07:41 Last Vital Signs Temp 97.9 F 11/04/20 08:00 Pulse 83 11/04/20 08:00 Resp 18 11/04/20 07:28 BP 151/94 11/04/20 08:00 Pulse Ox 96 11/04/20 07:28
--- NOTE | 2020-11-04 09:00 | Discharge Summary ---
Providers - Providers Date of Admission: 10/27/20 15:50 Date of discharge: 11/04/20 Attending physician: CHALINO LEZAMA MD 10/27/20 10:05 Consult to Physician [CONS] Routine Comment: Consulting Provider: YONNY WOOD Physician Instructions: Reason For Exam: manage medical conditions Primary care physician: DRAGLINE MECHANIC Hospitalization Reason for admission: suicidal attempt Admitting Diagnosis: F33.2 - MAJOR DEPRESSV DISORDER, RECURRENT SEVERE W/O PSYCH FEATURES Condition: Stable Disposition: DC-01 TO HOME OR SELFCARE Time spent for discharge: 38 Allergies/Adverse Reactions: Allergies Penicillins Allergy (Verified 10/27/20 17:08) Rash Vital Signs: Last Vital Signs Temp 97.9 F 11/04/20 08:00 Pulse 83 11/04/20 08:00 Resp 18 11/04/20 07:28 BP 151/94 11/04/20 08:00 Pulse Ox 96 11/04/20 07:28 Last Lab: Laboratory Last Values WBC 6.2 K/mm3 (4.5-11.0) 10/29/20 07:41 RBC 4.41 M/mm3 (3.65-5.03) 10/29/20 07:41 Hgb 12.0 gm/dl (10.1-14.3) 10/29/20 07:41 Hct 34.5 % (30.3-42.9) 10/29/20 07:41 MCV 78 fl (79-97) L 10/29/20 07:41 MCH 27 pg (28-32) L 10/29/20 07:41 MCHC 35 % (30-34) H 10/29/20 07:41 RDW 18.2 % (13.2-15.2) H 10/29/20 07:41 Plt Count 294 K/mm3 (140-440) 10/29/20 07:41 Lymph % (Auto) 20.7 % (13.4-35.0) 10/29/20 07:41 [place] % (Auto) 9.6 % (0.0-7.3) H 10/29/20 07:41 Eos % (Auto) 3.8 % (0.0-4.3) 10/29/20 07:41 Baso % (Auto) 1.5 % (0.0-1.8) 10/29/20 07:41 Lymph # (Auto) 1.3 K/mm3 (1.2-5.4) 10/29/20 07:41 [place] # (Auto) 0.6 K/mm3 (0.0-0.8) 10/29/20 07:41 Eos # (Auto) 0.2 K/mm3 (0.0-0.4) 10/29/20 07:41 Baso # (Auto) 0.1 K/mm3 (0.0-0.1) 10/29/20 07:41 Seg Neutrophils % 64.4 % (40.0-70.0) 10/29/20 07:41 Seg Neutrophils # 4.0 K/mm3 (1.8-7.7) 10/29/20 07:41 Sodium 139 mmol/L (137-145) 10/29/20 07:41 Potassium 3.7 mmol/L (3.6-5.0) 10/29/20 07:41 Chloride 101.9 mmol/L (98-107) 10/29/20 07:41 Carbon Dioxide 28 mmol/L (22-30) 10/29/20 07:41 Anion Gap 13 mmol/L 10/29/20 07:41 BUN 7 mg/dL (7-17) 10/29/20 07:41 Creatinine 0.9 mg/dL (0.6-1.2) 10/29/20 07:41 Estimated GFR > 60 ml/min 10/29/20 07:41 BUN/Creatinine Ratio 8 % 10/29/20 07:41 Glucose 81 mg/dL (65-100) 10/29/20 07:41 POC Glucose 148 mg/dL (70-105) H 10/27/20 17:41 Hemoglobin A1c 4.5 % (4-6) 10/29/20 07:41 Calcium 8.3 mg/dL (8.4-10.2) L 10/29/20 07:41 Total Bilirubin 0.20 mg/dL (0.1-1.2) 10/29/20 07:41 AST 9 units/L (5-40) 10/29/20 07:41 ALT < 5 units/L (7-56) L 10/29/20 07:41 Alkaline Phosphatase 62 units/L (35-129) 10/29/20 07:41 Total Protein 5.7 g/dL (6.3-8.2) L 10/29/20 07:41 Albumin 3.0 g/dL (3.9-5) L 10/29/20 07:41 Albumin/Globulin Ratio 1.1 % 10/29/20 07:41 Triglycerides 128 mg/dL (2-149) 10/29/20 07:41 Cholesterol 141 mg/dL (50-199) 10/29/20 07:41 LDL Cholesterol Direct 81 mg/dL (50-130) 10/29/20 07:41 HDL Cholesterol 45 mg/dL (40-59) 10/29/20 07:41 Cholesterol/HDL Ratio 3.13 % 10/29/20 07:41 TSH 5.150 mlU/mL (0.270-4.200) H 10/29/20 07:41 Core Measure Documentation - Palliative Care Palliative Care/ Comfort Measures: Not Applicable - Core Measures Any of the following diagnoses?: none Exam - Constitutional Vitals: Temp Pulse Resp BP Pulse Ox 97.9 F 83 18 151/94 96 11/04/20 08:00 11/04/20 08:00 11/04/20 07:28 11/04/20 08:00 11/04/20 07:28 General appearance: Present: no acute distress - EENT Eyes: Present: PERRL, EOM intact ENT: hearing intact, clear oral mucosa, dentition normal - Neck Neck: Present: supple, normal ROM - Respiratory Respiratory effort: normal Plan Activity: advance as tolerated Weight Bearing Status: Weight Bear as Tolerated Follow up with: PRIMARY CARE, [Primary Care Provider] - 7 Days
[2020-11-04] MEDS: ASPIRIN EC 81 MG TAB PO SCH (09:09)
[2020-11-04] MEDS: buPROPion XL 150 MG TAB PO SCH (09:10)
[2020-11-04] MEDS: CALCIUM CARBONATE/VITAMIN D3 500 MG-200 UNIT TAB PO SCH (09:10)
[2020-11-04] MEDS: VENLAFAXINE XR 75 MG CAP PO SCH (09:10)
[2020-11-04] MEDS: METOPROLOL SUCCINATE XL 25 MG TAB PO SCH (09:10)
[2020-11-04] MEDS: PANTOPRAZOLE 40 MG TAB PO SCH (09:10)
[2020-11-04] MEDS: ARIPiprazole 5 MG TAB PO SCH (09:10)
[2020-11-04] MEDS: hydroCHLOROthiazide 12.5 MG CAP PO SCH (09:11)
[2020-11-04] MEDS: LISINOPRIL 20 MG TAB PO SCH (09:11)
[2020-11-04] MEDS: amLODIPine 5 MG TAB PO SCH (09:11)
--- NOTE | 2020-11-04 09:17 | Event Note ---
Date: 11/04/20 Spoke with Jaimie concerning the patient's readiness for discharge. Also spoke with the patient's spouse. Informed him that the SW will call him or the patient to set up outpatient appointments. Also advised him that if the patient has suicidal thoughts or tendencies or any fear of endangerment to seek immediate assistance including 911/ER or/and crisis hotline. He verbalized understanding. Also discussed this with the patient, she too verbalized understanding of discharge directions. This was also discussed with the nurse caring for the pa tient today. All parties above agree upon the patient being discharged today.
--- NOTE | 2020-11-04 09:19 | Progress Note ---
Assessment and Plan Assessment and plan: -- Hypertension Current Visit: Yes Status: Chronic Continue antihypertensives Closely monitor blood pressures --Vitamin D deficiency Current Visit: Yes Status: Chronic Continue vitamin D --GERD (gastroesophageal reflux disease) Current Visit: Yes Status: Chronic Continue PPIs, changed to twice daily dose as requested by patient -- Hyperlipidemia Current Visit: Yes Status: Chronic Continue statins -- Hypothyroidism Current Visit: Yes Status: Chronic Continue levothyroxine. Check TSH --Moderate malnutrition/hypoalbuminemia Current Visit: Yes Status: Chronic nutrition supplements, supportive care --Depression Current Visit: Yes Status: Chronic Management per psych --Full code status --DVT prophylaxis Current Visit: Yes Status: Acute SCDs while resting Patient is medically stable for discharge Patient needs to follow-up with primary care physician for her medical needs I will sign off, thank you for this consultation History Interval history: I have seen and examined the patient this morning in the activity room Patient is excited that she is going home today No new complaints Vital signs noted stable Hospitalist Physical - Constitutional Vitals: Temp Pulse Resp BP Pulse Ox 97.9 F 83 18 151/94 96 11/04/20 08:00 11/04/20 09:11 11/04/20 07:28 11/04/20 09:11 11/04/20 07:28 General appearance: Present: no acute distress, well-nourished - EENT Eyes: Present: PERRL, EOM intact - Neck Neck: Present: supple, normal ROM - Respiratory Respiratory effort: normal Respiratory: bilateral: diminished, negative: rales, rhonchi, wheezing - Cardiovascular Rhythm: regular Heart Sounds: Present: S1 & S2 - Extremities Extremities: no ischemia, No edema - Abdominal General gastrointestinal: soft, non-tender, non-distended, normal bowel sounds - Integumentary Integumentary: Present: clear, warm - Psychiatric Psychiatric: appropriate mood/affect, cooperative - Neurologic Neurologic: CNII-XII intact, moves all extremities Results - Labs CBC & Chem 7: 10/29/20 07:41 10/29/20 07:41 Labs: Laboratory Last Values WBC 6.2 K/mm3 (4.5-11.0) 10/29/20 07:41 RBC 4.41 M/mm3 (3.65-5.03) 10/29/20 07:41 Hgb 12.0 gm/dl (10.1-14.3) 10/29/20 07:41 Hct 34.5 % (30.3-42.9) 10/29/20 07:41 MCV 78 fl (79-97) L 10/29/20 07:41 MCH 27 pg (28-32) L 10/29/20 07:41 MCHC 35 % (30-34) H 10/29/20 07:41 RDW 18.2 % (13.2-15.2) H 10/29/20 07:41 Plt Count 294 K/mm3 (140-440) 10/29/20 07:41 Lymph % (Auto) 20.7 % (13.4-35.0) 10/29/20 07:41 Lake % (Auto) 9.6 % (0.0-7.3) H 10/29/20 07:41 Eos % (Auto) 3.8 % (0.0-4.3) 10/29/20 07:41 Baso % (Auto) 1.5 % (0.0-1.8) 10/29/20 07:41 Lymph # (Auto) 1.3 K/mm3 (1.2-5.4) 10/29/20 07:41 Lake # (Auto) 0.6 K/mm3 (0.0-0.8) 10/29/20 07:41 Eos # (Auto) 0.2 K/mm3 (0.0-0.4) 10/29/20 07:41 Baso # (Auto) 0.1 K/mm3 (0.0-0.1) 10/29/20 07:41 Seg Neutrophils % 64.4 % (40.0-70.0) 10/29/20 07:41 Seg Neutrophils # 4.0 K/mm3 (1.8-7.7) 10/29/20 07:41 Sodium 139 mmol/L (137-145) 10/29/20 07:41 Potassium 3.7 mmol/L (3.6-5.0) 10/29/20 07:41 Chloride 101.9 mmol/L (98-107) 10/29/20 07:41 Carbon Dioxide 28 mmol/L (22-30) 10/29/20 07:41 Anion Gap 13 mmol/L 10/29/20 07:41 BUN 7 mg/dL (7-17) 10/29/20 07:41 Creatinine 0.9 mg/dL (0.6-1.2) 10/29/20 07:41 Estimated GFR > 60 ml/min 10/29/20 07:41 BUN/Creatinine Ratio 8 % 10/29/20 07:41 Glucose 81 mg/dL (65-100) 10/29/20 07:41 POC Glucose 148 mg/dL (70-105) H 10/27/20 17:41 Hemoglobin A1c 4.5 % (4-6) 10/29/20 07:41 Calcium 8.3 mg/dL (8.4-10.2) L 10/29/20 07:41 Total Bilirubin 0.20 mg/dL (0.1-1.2) 10/29/20 07:41 AST 9 units/L (5-40) 10/29/20 07:41 ALT < 5 units/L (7-56) L 10/29/20 07:41 Alkaline Phosphatase 62 units/L (35-129) 10/29/20 07:41 Total Protein 5.7 g/dL (6.3-8.2) L 10/29/20 07:41 Albumin 3.0 g/dL (3.9-5) L 10/29/20 07:41 Albumin/Globulin Ratio 1.1 % 10/29/20 07:41 Triglycerides 128 mg/dL (2-149) 10/29/20 07:41 Cholesterol 141 mg/dL (50-199) 10/29/20 07:41 LDL Cholesterol Direct 81 mg/dL (50-130) 10/29/20 07:41 HDL Cholesterol 45 mg/dL (40-59) 10/29/20 07:41 Cholesterol/HDL Ratio 3.13 % 10/29/20 07:41 TSH 5.150 mlU/mL (0.270-4.200) H 10/29/20 07:41 Whaley/IV: Voiding Method Toilet Active Medications - Current Medications Current Medications: Generic Name Dose Route Start Last Admin Trade Name Freq PRN Reason Stop Dose Admin Amlodipine Besylate 2.5 mg 10/28/20 11:00 11/04/20 09:11 Amlodipine 5 Mg Tab PO 2.5 mg QDAY JESSICA Administration Aripiprazole 5 mg 10/30/20 10:00 11/04/20 09:10 Aripiprazole 5 Mg Tab PO 5 mg QDAY JESSICA Administration Aspirin 81 mg 10/28/20 11:00 11/04/20 09:09 Aspirin Ec 81 Mg Tab PO 81 mg QDAY JESSICA Administration Bupropion HCl 300 mg 10/28/20 11:00 11/04/20 09:10 Bupropion Xl 150 Mg Tab PO 300 mg QAM JESSICA Administration Calcium/Vitamin D 1 each 10/28/20 22:00 11/04/20 09:10 Calcium Carbonate/Vitamin D3 500 Mg-200 Unit Tab PO 1 each BID JESSICA Administration Hydrochlorothiazide 12.5 mg 10/28/20 12:00 11/04/20 09:11 Hydrochlorothiazide 12.5 Mg Cap PO 12.5 mg DAILY JESSICA Administration Lisinopril 20 mg 10/28/20 11:00 11/04/20 09:11 Lisinopril 20 Mg Tab PO 20 mg DAILY JESSICA Administration Metoprolol Succinate 25 mg 10/28/20 12:00 11/04/20 09:10 Metoprolol Succinate Xl 25 Mg Tab PO 25 mg DAILY JESSICA Administration Pantoprazole Sodium 40 mg 11/01/20 22:00 11/04/20 09:10 Pantoprazole 40 Mg Tab PO 40 mg BID JESSICA Administration Pravastatin Sodium 40 mg 10/28/20 22:00 11/03/20 21:14 Pravastatin 40 Mg Tab PO 40 mg QHS JESSICA Administration Trazodone HCl 100 mg 10/28/20 22:00 11/03/20 21:14 Trazodone 100 Mg Tab PO 100 mg QHS JESSICA Administration Venlafaxine HCl 75 mg 10/28/20 12:00 11/04/20 09:10 Venlafaxine Xr 75 Mg Cap PO 75 mg QDAY JESSICA Administration Nutrition/Malnutrition Assess - Dietary Evaluation Nutrition/Malnutrition Findings: Nutrition Notes Start: 11/01/20 09:09 Freq: Status: Active Protocol: Document 11/01/20 09:09 REGINO (Rec: 11/01/20 09:10 REGINO [id number]) Nutrition Notes Initial or Follow up Brief Note Subjective/Other Information Screen for LOS. Pt eating 75- 100% of meals. Nutrition Intervention Revisit per MD consult or patient Sign Off request:
== END 2020-11-04 11:20 | disposition home or self-care (01) | DRG 885 ==
LOC: 3A 05:00 → UNDOADMIN 05:00 → 5A 15:50
PROVIDERS: ADMIT Psychiatry & Neurology Psychiatry; ATTEND Psychiatry & Neurology Psychiatry
DX: F33.9 Major depressive disorder, recurrent, unspecified (principal); R45.851 Suicidal ideations; E44.0 Moderate protein-calorie malnutrition; K21.9 Gastro-esophageal reflux disease without esophagitis; E78.5 Hyperlipidemia, unspecified; E03.9 Hypothyroidism, unspecified; M81.0 Age-related osteoporosis without current pathological fracture; I10 Essential (primary) hypertension; E55.9 Vitamin D deficiency, unspecified; E88.09 Other disorders of plasma-protein metabolism, not elsewhere classified; Z88.0 Allergy status to penicillin; Z79.899 Other long term (current) drug therapy; Z79.891 Long term (current) use of opiate analgesic; Z79.01 Long term (current) use of anticoagulants; Z68.26 Body mass index [BMI] 26.0-26.9, adult
CPT/HCPCS: 36415; 80053; 80061; 82962; 83036; 84443; 85025; G0378